=== PATIENT | female | born 1945 | race Caucasian/White ===

== ENCOUNTER 2019-06-29 09:56 | Outpatient (RCR) | payer MEDICARE, OTHER, SELFPAY | END 2019-07-20 00:01 | LOC: GILAB 09:56 | PROVIDERS: Family Provider Internal Medicine; Visit Provider Internal Medicine | DX: Z20.3 Contact with and (suspected) exposure to rabies (principal) | CPT/HCPCS: 90675 ×2; 96372 ×2; G0463 ×2 ==

== ENCOUNTER 2020-04-19 20:00 | Outpatient (CLI) | payer MEDICARE, OTHER, SELFPAY | END 2020-04-19 20:01 | disposition home or self-care (01) | LOC: SLEEP 04-20 09:24 | PROVIDERS: Family Provider Internal Medicine; Visit Provider Internal Medicine | DX: G47.33 Obstructive sleep apnea (adult) (pediatric) (principal); R41.89 Other symptoms and signs involving cognitive functions and awareness | CPT/HCPCS: 95811 ==

== ENCOUNTER 2020-05-29 08:51 | Outpatient (CLI) | payer MEDICARE, OTHER, SELFPAY ==
--- NOTE | 2020-05-29 08:59 | MM_ITS ---
WS: [id number] Bilateral screening digital mammogram, 05/29/2020 Clinical Data: SCREENING Comparison: 07/24/2018, 12/04/2016, 10/30/2015, 12/14/2013, 08/22/2011. Findings: The breast parenchymal pattern shows fibroglandular tissue No spiculated masses or clustered calcific ations are seen. There are no secondary signs of carcinoma. MM/[place] [id number] Impression: 1. Negative bilateral mammogram unchanged. 2. Recommend annual screening mammograms. BIRADS: 1-Negative FOLLOW UP: 1 Year Follow-up The CAD dry cleaning checker was used.
== END 2020-05-29 08:52 | disposition home or self-care (01) ==
LOC: RADSHAW 08:55
PROVIDERS: PCP Internal Medicine; Visit Provider Internal Medicine
DX: Z12.31 Encounter for screening mammogram for malignant neoplasm of breast (principal)
CPT/HCPCS: 77067

== ENCOUNTER 2020-12-19 10:45 | Outpatient (CLI) | payer MEDICARE, OTHER, SELFPAY ==
--- NOTE | 2020-12-19 10:53 | MR_ITS ---
WS: [id number] MRI HEAD WITH CONTRAST TECHNIQUE: Sagittal T1, T2 axial, T2 axial FLAIR, axial susceptibility weighted imaging, axial diffus ion weighted images, and coronal T2 images were obtained. Pre and post-T1 axial and post T1 coronal i mages. ADC and FSPGR images. CLINICAL INFORMATION: WEAKNESS RIGHT ARM;COGNITIVE CHANGES COMPARISON: MRI/MRA April 2018 FINDINGS: No evidence of restricted diffusion to suggest acute ischemia. Ventricular system and basal cisterns are patent. Mild small vessel changes. Moderate parenchymal volume loss. Small vessel changes in the nafisa. Normal posterior fossa. Normal vascular flow voids at the skull base. No extra axial fluid javi ections. No evidence of mass or mass effect. No hemosiderin on susceptibly weighted images. Normal optic chiasm and pituitary infundibulum. Mild s ymmetric atrophy temporal lobes and hippocampal formations. No abnormal intracranial enhancing lesion s. Normal dural venous sinuses. MR/MR head wo/w con [id number] IMPRESSION: 1. No evidence of restricted diffusion to suggest acute ischemia. 2. Mild small vessel changes with moderate parenchymal volume loss. 3. Small vessel changes in the nafisa. 4. No abnormal intracranial enhancement. 5. Mild symmetric atrophy temporal lobes and hippocampal formations. 6. No other significant findings.
[2020-12-19] MEDS: gadobenate dimeglumine 20 mL vial IV (11:34)
== END 2020-12-19 10:46 | disposition home or self-care (01) ==
LOC: RADSHAW 10:49
PROVIDERS: PCP Internal Medicine; Visit Provider Internal Medicine
DX: R53.1 Weakness (principal); R41.89 Other symptoms and signs involving cognitive functions and awareness; G31.9 Degenerative disease of nervous system, unspecified
CPT/HCPCS: 70553; A9577

== ENCOUNTER 2021-10-16 14:52 | Outpatient (CLI) | payer MEDICARE, OTHER, SELFPAY ==
--- NOTE | 2021-10-16 14:56 | MM_ITS ---
WS: [id number] VIEWS: MLO and CC views both breasts. 3D digital tomosynthesis is also included in this exam. Comparison made with prior exam of 07/29/2019. Findings: There was no sign of mass, architectural distortion or suspicious calcification in either breast. Sc attered fibroglandular densities MM/[place] [id number] Impression: BI-RADS: 2-Benign FOLLOW-UP: 1 Year Follow-up This mammogram was also analyzed by the Computer Aided Detection System R2 Imag e Medical Superintendent.
== END 2021-10-16 14:53 | disposition home or self-care (01) ==
LOC: RADSHAW 14:53
PROVIDERS: PCP Internal Medicine; Visit Provider Internal Medicine
DX: Z12.31 Encounter for screening mammogram for malignant neoplasm of breast (principal)
CPT/HCPCS: 77063; 77067

== ENCOUNTER → 2022-06-03 12:51 | Outpatient (BNVA) | payer MEDICARE, OTHER, SELFPAY | PROVIDERS: PCP Internal Medicine; Visit Provider Podiatrist Foot & Ankle Surgery | DX: M19.071 Primary osteoarthritis, right ankle and foot (principal) | CPT/HCPCS: 73600; 73630; 99204 ==

== ENCOUNTER → 2022-07-17 10:25 | Outpatient (BNVA) | payer MEDICARE, OTHER, SELFPAY | PROVIDERS: PCP Internal Medicine; Visit Provider Podiatrist Foot & Ankle Surgery | DX: M19.072 Primary osteoarthritis, left ankle and foot (principal); M19.071 Primary osteoarthritis, right ankle and foot | CPT/HCPCS: 99213 ==

== ENCOUNTER → 2022-08-30 08:00 | Outpatient (BNVA) | payer MEDICARE, SELFPAY | PROVIDERS: PCP Internal Medicine; Visit Provider Podiatrist Foot & Ankle Surgery | DX: M19.071 Primary osteoarthritis, right ankle and foot (principal) | CPT/HCPCS: 20605 ==

== ENCOUNTER 2022-11-12 16:15 | Outpatient (CLI) | payer MEDICARE, SELFPAY ==
--- NOTE | 2022-11-12 | XRR_ITS ---
PROCEDURE INFORMATION: Exam: XR Chest Exam date and time: 11/12/2022 4:55 PM Age: 77 years old Clinical indication: Cough TECHNIQUE: Imaging protocol: Radiologic exam of the chest. Views: 2 views. COMPARISON: CT chest w con* [id number] 05/03/2019 11:34 AM FINDINGS: Lungs: Unremarkable. No consolidation. Pleural spaces: Unremarkable. No pleural effusion. No pneumothorax. Heart/Mediastinum: Unremarkable. No cardiomegaly. Bones/joints: Unremarkable. XR/XR chest 2V* [id number] IMPRESSION: No acute findings.
== END 2022-11-12 16:16 | disposition home or self-care (01) ==
PROVIDERS: PCP Internal Medicine; Visit Provider Internal Medicine
DX: R05.9 Cough, unspecified (principal)
CPT/HCPCS: 71046

== ENCOUNTER 2022-12-04 14:06 | Emergency (ER) | payer MEDICARE, SELFPAY ==
[2022-12-04 14:25] VITALS: BP 154/85; PULSE 87; RESP 16; TEMP 36.6; O2SAT 97; BMI 32.1
[2022-12-04 15:30] LABS: Basophils % 0.4 %; Eosinophils # 0.1 10^3/uL (0.0-0.8); Eosinophils % 1.1 %; Hematocrit 43.9 % (37.0-47.0); Hemoglobin 14.2 g/dL (11.5-15.3); Lymphocytes # 1.8 10^3/uL (0.8-4.8); Lymphocytes % 34.5 %; Mean Corpuscular HGB Conc 32.3 g/dL (30.0-36.0); Mean Corpuscular Hemoglobin 29.8 pg (28.0-34.0); Mean Corpuscular Volume 92.2 fl (81-99); Mean Platelet Volume 9.8 fL (7.4-10.4); Monocytes # 0.6 10^3/uL (0.2-0.9); Monocytes % 11.6 %; Neutrophils # 2.75 10^3/uL (1.8-7.7); Neutrophils % 52.2 %; Nucleated Red Blood Cells % 0 %; Platelet Count 257 10^3/cmm (130-400); Red Blood Count 4.76 10^6/uL (4.1-5.3); Red Cell Distribution Width 13.6 % (12.1-15.1); White Blood Count 5.3 10^3/uL (4.0-10.0)
[2022-12-04 15:53] LABS: Alanine Aminotransferase 25 U/L (0-33); Albumin Level 3.9 g/dL (3.5-5.2); Alkaline Phosphatase 61 U/L (35-105); Anion Gap 15.1 (5-19); Aspartate Amino Transferase 33 U/L (0-32); Blood Urea Nitrogen 23 mg/dL (8-23); Calcium 8.7 mg/dL (8.5-10.5); Carbon Dioxide 23 mmol/L (22-29); Chloride 107 mmol/L (98-107); Globulin 3.4 g/dL (1.3-4.6); Glucose 97 mg/dL (65-115); Lipase 32 U/L (13-60); Magnesium 2.2 mg/dL (1.7-2.3); Osmolality Calculated 296 mOsm/kg (285-295); Potassium 4.1 mmol/L (3.5-5.1); Sodium 141 mmol/L (136-145); Total Bilirubin 0.3 mg/dL (0.15-1.2); Total Protein 7.3 g/dL (6.6-8.7)
--- NOTE | 2022-12-04 15:55 | ED_ITS ---
HPI - General Adult General: Chief complaint: General Medical Stated complaint: Sanket sent for abn labs/fluids Time Seen by Provider: 12/04/22 15:48 History of Present Illness: Patient is a 77-year-old female who comes to the ED with diarrhea. Patient reports that about 3 days ago on Friday she started feeling unwell and describes having body aches and chills. Then starting 2 days ago on Friday she developed bad diarrhea. She was having episodes of diarrhea multiple times every hour and was having accidents in her underwear. Describes the stool as a yellow liquidy type stool. Denies any abdominal pain, abdominal cramping. She endorsed not eating or drinking much during that time but denies any episodes of emesis. She does endorse feeling nausea over the past couple days. Patient was sent here by her PCP to get labs and to check for dehydration. Associated symptoms: Reports nausea; Deny chest pain, dyspnea, headache(s), rash, palpitations or vomiting Review of Systems Const: Reports: chills, body aches and fatigue; Denies: fever(s) Eyes: Denies: change in vision or eye discomfort ENMT: Denies: throat pain, odynophagia, nasal discharge or nasal congestion Card: Denies: chest pain, palpitations, edema, swelling of feet/ankles, dyspnea on exertion or orthopnea Resp: Denies: dyspnea, productive cough or non-productive cough GI: Reports: nausea and diarrhea; Denies: abdominal pain, vomiting, constipation or hematochezia : Denies: flank pain, dysuria or hematuria Musc: Denies: neck pain, back pain or extremity swelling Skin/Breast: Denies: rash or new lesions Neuro: Denies: headache(s), numbness in extremities or weakness in extremities PFS ED PFSH: Family History Brother Hypertension Stroke Sister Hypertension Mother Hypertension Stroke Father Hypertension Social History Smoking and tobacco status: former smoker Second hand smoke exposure: No Physical Exam Const: COMMON NORMALS: patient oriented x3 HENMT: COMMON NORMALS: normocephalic HEAD & SCALP: normocephalic MOUTH: Normal oral and palatal mucosa present THROAT: posterior oropharynx normal and uvula midline Neck/C-Spine: COMMON NORMALS: supple GENERAL: Yes normal visual inspection Resp: COMMON NORMALS: normal respiratory effort, No retractions, No use of accessory muscles and clear to auscultation bilaterally AUSCULTATION: clear to auscultation bilaterally Cardio: COMMON NORMALS: regular rate, regular rhythm, S1 normal heart sound present, S2 normal heart sound present, No gallops present (Cardio), No clicks present (Cardio), No murmurs present (Cardio) and Peripheral pulses 2+ throughout RATE: regular rate RHYTHM: regular rhythm HEART SOUNDS: S1 normal heart sound present and S2 normal heart sound present PERIPHERAL PULSES: Peripheral pulses 2+ throughout GI: COMMON NORMALS: Normal to inspection, nondistended, normoactive bowel sounds present, Soft to palpation, non-tender and no masses PALPATION: Yes Soft to palpation : COMMON NORMALS: Yes no CVA tenderness BLADDER/KIDNEY EXAM: Yes no CVA tenderness Back/Pelvis: COMMON NORMALS: no CVA tenderness Extremity: COMMON NORMALS: normal to inspection Neuro: COMMON NORMALS: patient oriented x3 GAIT: Yes Normal gait present Skin: GENERAL SKIN EXAM: dry skin Course Vital Signs: Vital signs: Vital Signs Temperature 97.9 F 12/04/22 14:25 Pulse Rate 87 12/04/22 14:25 Respiratory Rate 16 12/04/22 14:25 Blood Pressure 154/85 12/04/22 14:25 Pulse Oximetry 97 12/04/22 14:25 Oxygen Delivery Me thod Room Air 12/04/22 14:25 MDM - General Adult Medical Decision Making Patient is a 77-year-old female who comes to the ED with diarrhea. Patient reports that about 3 days ago on Friday she started feeling unwell and describes having body aches and chills. Then starting 2 days ago on Friday she developed bad diarrhea. She was having episodes of diarrhea multiple times every hour and was having accidents in her underwear. Describes the stool as a yellow liquidy type stool. Denies any abdominal pain, abdominal cramping. She endorsed not eating or drinking much during that time but denies any episodes of emesis. She does endorse feeling nausea over the past couple days. Patient was sent here by her PCP to get labs and to check for dehydration. Vitals are stable. Exam of patient is benign and she appears nontoxic and in no acute distress or pain. No abdominal tenderness to palpation. CBC, CMP were all unremarkable. Patient was given 1 L of IV fluids and nausea meds and she was able to tolerate p.o. fluids. She had no episodes of vomiting or diarrhea here in the ED. Patient's symptoms are likely due to viral gastroenteritis and she was stable for discharge home. She was sent home with a prescription for Zofran and told to follow-up with her PCP within the next week for reevaluation. Strict return ED precautions given. Patient understood and agreed with plan. Lab Data I reviewed the patient's lab results. 12/04/22 15:20 12/04/22 15:20 Laboratory Results WBC 5.3 10^3/uL (4.0-10.0) 12/04/22 15:20 RBC 4.76 10^6/uL (4.1-5.3) 12/04/22 15:20 Hgb 14.2 g/dL (11.5-15.3) 12/04/22 15:20 Hct 43.9 % (37.0-47.0) 12/04/22 15:20 MCV 92.2 fl (81-99) 12/04/22 15:20 MCH 29.8 pg (28.0-34.0) 12/04/22 15:20 MCHC 32.3 g/dL (30.0-36.0) 12/04/22 15:20 RDW 13.6 % (12.1-15.1) 12/04/22 15:20 Plt Count 257 10^3/cmm (130-400) 12/04/22 15:20 MPV 9.8 fL (7.4-10.4) 12/04/22 15:20 Neut % (Auto) 52.2 % 12/04/22 15:20 Lymph % (Auto) 34.5 % 12/04/22 15:20 Cocke % (Auto) 11.6 % 12/04/22 15:20 Eos % (Auto) 1.1 % 12/04/22 15:20 Baso % (Auto) 0.4 % 12/04/22 15:20 Neut # (Auto) 2.75 10^3/uL (1.8-7.7) 12/04/22 15:20 Lymph # (Auto) 1.8 10^3/uL (0.8-4.8) 12/04/22 15:20 Cocke # (Auto) 0.6 10^3/uL (0.2-0.9) 12/04/22 15:20 Eos # (Auto) 0.1 10^3/uL (0.0-0.8) 12/04/22 15:20 Baso # (Auto) 0.0 10^3/uL (0.0-0.1) 12/04/22 15:20 Nucleated RBC % (auto) 0 % 12/04/22 15:20 Nucleated RBCs # 0.0 /100WBC 12/04/22 15:20 Sodium 141 mmol/L (136-145) 12/04/22 15:20 Potassium 4.1 mmol/L (3.5-5.1) 12/04/22 15:20 Chloride 107 mmol/L (98-107) 12/04/22 15:20 Carbon Dioxide 23 mmol/L (22-29) 12/04/22 15:20 Anion Gap 15.1 (5-19) 12/04/22 15:20 BUN 23 mg/dL (8-23) 12/04/22 15:20 Creatinine 0.8 mg/dL (0.5-0.9) 12/04/22 15:20 GFR Calculation Not Reportable 12/04/22 15:20 Glucose 97 mg/dL (65-115) 12/04/22 15:20 Calculated Osmolality 296 mOsm/kg (285-295) H 12/04/22 15:20 Calcium 8.7 mg/dL (8.5-10.5) 12/04/22 15:20 Magnesium 2.2 mg/dL (1.7-2.3) 12/04/22 15:20 Total Bilirubin 0.3 mg/dL (0.15-1.2) 12/04/22 15:20 AST 33 U/L (0-32) H 12/04/22 15:20 ALT 25 U/L (0-33) 12/04/22 15:20 Alkaline Phosphatase 61 U/L (35-105) 12/04/22 15:20 Total Protein 7.3 g/dL (6.6-8.7) 12/04/22 15:20 Albumin 3.9 g/dL (3.5-5.2) 12/04/22 15:20 Globulin 3.4 g/dL (1.3-4.6) 12/04/22 15:20 Lipase 32 U/L (13-60) 12/04/22 15:20 Discharge Plan Discharge Patient Disposition: Home Clinical Impression: Viral gastroenteritis Condition: Stable Prescriptions: New ondansetron 4 mg tablet,disintegrating 4 mg PO Q8H PRN (Reason: nausea and vomiting) Qty: 20 0RF No Action losartan 25 mg tablet 25 mg PO DAILY gabapentin 100 mg capsule 100 mg PO Q8H PRN (Reason: nerve pain) amlodipine 5 mg tablet 5 mg PO DAILY Calcium + D 600 mg-5 mcg (200 unit) Tablet 1 tab PO DAILY meloxicam 7.5 mg tablet 7.5 mg PO BID metoprolol succinate 25 mg tablet extended release 24 hr 25 mg PO DAILY magnesium 200 mg Tablet 200 mg PO QPM duloxetine 30 mg capsule,delayed release(DR/EC) 30 mg PO BID Discharge Orders: Discharge ED (Routine); Ordered 12/04/22 Ordered By: Billy Hwang Referrals: Gillian Coles MD [Primary Care Provider] - Discharge Diet: Advance as tolerated and Clear Liquid Discharge Activity: Increase activity as tolerated Patient Instructions: Gastroenteritis (ED) Activity Restrictions/Additional Instructions: Follow-up with medical provider as directed in the next 5 to 7 days for reevaluation. Take medications as prescribed. Return to the ER or your medical provider if condition worsens. Please read and understand discharge instructions. Thank you for choosing [facility] for your healthcare needs today. Please realize this is an emergency room and that we are providing you with a medical screening exam and this may not be complete and all inclusive of all the testing and or work up that you may need to determine your ailment or severity of your illness. It is very important that you follow up as instructed or that you return to the Emergency Department should you have concerns or if your condition changes or worsens in any way. Coding Level of Care Code ED Jtac for Nena Harrington
[2022-12-04] MEDS: ondansetron 2 mg/ML SDV 2 mL 4 MG IVP (16:04)
[2022-12-04] MEDS: sodium chloride 0.9% 1,000 ML 999 ML IV (16:05)
== END 2022-12-04 17:25 | disposition home or self-care (01) ==
PROVIDERS: Emergency Medicine; Emergency Provider Physician Assistant; PCP Internal Medicine
DX: A08.4 Viral intestinal infection, unspecified (principal)
CPT/HCPCS: 36415; 80053; 83690; 83735; 85025; 96361; 96374; 99284; J2405; J7030

== ENCOUNTER 2022-12-05 13:08 | Outpatient (CLI) | payer MEDICARE, SELFPAY | END 2022-12-05 13:09 | disposition home or self-care (01) | LOC: LAB 13:13 | PROVIDERS: PCP Internal Medicine; Visit Provider Internal Medicine | DX: R19.7 Diarrhea, unspecified (principal) | CPT/HCPCS: 87493; 87506 ==

== ENCOUNTER 2023-01-10 08:30 | Outpatient (CLI) | payer MEDICARE, SELFPAY ==
--- NOTE | 2023-01-10 08:42 | MM_ITS ---
WS: [id number] SCREENING DIGITAL BREAST TOMOSYNTHESIS MAMMOGRAM WITH CAD HISTORY: SCREENING COMPARISON: 10/16/2021, 05/29/2020 and 07/24/2018 Bilateral CC and MLO with tomosynthesis and synthetic mammography submitted. Computer aided detection analyzed. Breast composition: There are scattered areas of fibroglandular density. Increasing asymmetry posteri or to the RIGHT nipple. Prominent soft tissues have progressed. Otherwise the vascular and scattered benign calcifications are stable. MM/[place] [id number] IMPRESSION: BI-RADS: 0-Incomplete: Need additional imaging evaluation FOLLOW UP: Need Additional Imaging RIGHT breast: Spot compression views (CC and MLO). True ML. Ultrasound to follo w if abnormality persists.
== END 2023-01-10 08:31 | disposition home or self-care (01) ==
PROVIDERS: PCP Internal Medicine; Visit Provider Internal Medicine
DX: Z12.31 Encounter for screening mammogram for malignant neoplasm of breast (principal); N64.89 Other specified disorders of breast
CPT/HCPCS: 77063; 77067

== ENCOUNTER 2023-02-10 10:03 | Outpatient (CLI) | payer MEDICARE, SELFPAY ==
--- NOTE | 2023-02-10 10:20 | MM_ITS ---
WS: [id number] ADDITIONAL VIEWS RIGHT MAMMOGRAM WITH DIGITAL BREAST TOMOSYNTHESIS. RIGHT BREAST ULTRASOUND HISTORY: RT ABNORMAL MAMMOGRAM COMPARISON: 01/10/2023, 10/16/2021 and 05/29/2020 RIGHT MAMMOGRAM: Spot compression views and true ML with digital breast tomosynthesis and SM. Asymmetry persists but appears significantly improved posterior to the RIGHT nipple. There are additi onal vascular and scattered punctate calcifications. RIGHT BREAST ULTRASOUND 2-D and color Doppler imaging submitted. No soft tissue mass posterior to the nipple or in the subareolar region. MM/[place] [id number] IMPRESSION: BI-RADS: 2-Benign FOLLOW UP: 1 Year Follow-up
== END 2023-02-10 10:04 | disposition home or self-care (01) ==
PROVIDERS: PCP Internal Medicine; Visit Provider Internal Medicine
DX: R92.8 Other abnormal and inconclusive findings on diagnostic imaging of breast (principal)
CPT/HCPCS: 76642; 77061; G0279

== ENCOUNTER 2023-05-22 07:56 | Outpatient (CLI) | payer MEDICARE, SELFPAY ==
--- NOTE | 2023-05-22 | ECG_ITS ---
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 Interpretive Statements NAME OF STUDY: LEXISCAN SESTAMIBI STRESS TEST INDICATION: [ABNORMAL EKG, ] Procedure: At the baseline, the blood pressure was 186/90 mmHg with a heart rate of 70 bpm. The electrocardiogram showed normal sinus rhythm, normal axis with normal ST and T's. The Lexiscan was infused over a period of 20 seconds. A total of 0.4 mg of Lexiscan was infused. The stress phase was continued for a total of 5 minutes. Heart rate was at the end of stress phase was 92 bpm and a blood pressure of 172/81 mmHg. The EKG at the peak infusion revealed normal sinus rhythm with no significant ST-T wave changes. Occasional PVCs were seen. Sestamibi was injected 20 seconds after the Lexiscan infusion. Blood pressure at the end of recovery phase was 159/81 mmHg with a heart rate of 86 bpm. Conclusion: 1. Normal EKG response to Lexiscan infusion 2. No Lexiscan induced chest pain or cardiac arrhythmia. 3. Normal blood pressure and heart rate response. 4. Sestamibi/sestamibi perfusion scan pending; see separate report. Electronically Signed On 05-24-2023 20:47:08 CDT by Braden Rios M.D. [id number]
--- NOTE | 2023-05-22 08:19 | NMCV_ITS ---
NM srinivasa perf SPECT r/s* [id number] Billie Sanchez Age: 77 Gender: F : 1945 Exam Date: 05/22/2023 08:19 Ordering Phys: Gillian Coles MD Technologist: MIKHAIL Hartman Exam Location: [facility] Indications: ABNORMAL EKG STRESS TEST Please [facility] IMAGE PROTOCOL Rest/Stress 1 Lexiscan Day Radiopharmaceutical Dose (mCi) Administration Site Administered by Rest: Tc-99m 10.7 IV Stepahnie Barney, [employer] Sestamibi Stress:Tc-99m 32.4 IV Stephanie Barney, [employer] Sestamibi Rest: 22-May-2023 60 Discovery 630 Stress: 22-May-2023 30 Discovery 630 0.4mg Lexiscan. Images obtained in supine and prone position. SPECT RESULTS Technical Quality: Excellent Raw Data Analysis: Normal Image Corrections: No attenuation or motion correction applied Summed Stress Score: 3 Summed Rest Score: 0 Summed Difference Score: 3 PERFUSION FINDINGS There is a small sized area of equivocal reversible perfusion defect noted in the inferolateral wall. This is consistent with small sized area of ischemia vs attneuation artifact. Clinical correlation is required. FUNCTIONAL RESULTS (calculated via Gated SPECT) Stress Image LV EF (%): 82 Stress EDV (mL):60 TID: 0.9 Stress ESV (mL):11 FUNCTIONAL FINDINGS: There is normal left ventricular systolic function. IMPRESSIONS 1. Small sized area of possible ischemia in left circumflex artery territory versus attenuation artifact. Clinical correlation is required. 2. LV systolic function is normal Braden Rios MD (Electronically Signed) Final Date: 22 May 2023 12:07 S
[2023-05-22 08:20] VITALS: BMI 33.6
[2023-05-22] MEDS: regadenoson 0.4 Mg/5 ml Syringe IVP (10:07)
[2023-05-22 10:26] VITALS: BP 159/51; PULSE 91
== END 2023-05-22 07:57 | disposition home or self-care (01) ==
LOC: CDL 07:57
PROVIDERS: PCP Internal Medicine; Visit Provider Internal Medicine
DX: R94.31 Abnormal electrocardiogram [ECG] [EKG] (principal)
CPT/HCPCS: 36415; 78452; 93017; 96374; A9500; J2785

== ENCOUNTER → 2023-06-06 10:47 | Outpatient (BNVA) | payer MEDICARE, SELFPAY | PROVIDERS: PCP Internal Medicine; Visit Provider Internal Medicine Cardiovascular Disease | DX: G47.30 Sleep apnea, unspecified (principal); I10 Essential (primary) hypertension; Z87.891 Personal history of nicotine dependence | CPT/HCPCS: 99203 ==

== ENCOUNTER → 2024-03-18 11:03 | Outpatient (BNVA) | payer MEDICARE, SELFPAY | PROVIDERS: PCP Internal Medicine; Visit Provider Podiatrist Foot & Ankle Surgery | DX: M19.071 Primary osteoarthritis, right ankle and foot; M19.072 Primary osteoarthritis, left ankle and foot | CPT/HCPCS: 20600; J1100; J3301 ==

== ENCOUNTER 2024-06-04 07:39 | Outpatient (CLI) | payer MEDICARE, SELFPAY ==
--- NOTE | 2024-06-04 07:41 | MM_ITS ---
WS: [id number] BILATERAL SCREENING DIGITAL TOMOSYNTHESIS MAMMOGRAM WITH CAD HISTORY: SCREENING COMPARISON: 02/10/2023, 01/10/2023, 10/16/2021 Bilateral CC and MLO views with tomosynthesis and synthetic mammography submitted. Computer aided det ection analyzed. Breast composition: There are scattered areas of fibroglandular density. No suspicious masses, microc alcifications or architectural distortion. Scattered calcifications and arterial calcifications. No n ew mass or distortion. MM/MM scr BI tomosynthesis [id number] IMPRESSION: BI-RADS: 2 - Benign. FOLLOW UP: 1 Year Follow-up
== END 2024-06-04 07:40 | disposition home or self-care (01) ==
LOC: RAD 07:40
PROVIDERS: PCP Internal Medicine; Visit Provider Internal Medicine
DX: Z12.31 Encounter for screening mammogram for malignant neoplasm of breast (principal); R92.323 Mammographic fibroglandular density, bilateral breasts; R92.1 Mammographic calcification found on diagnostic imaging of breast
CPT/HCPCS: 77063; 77067

== ENCOUNTER 2024-10-24 13:39 | Inpatient (IN) | payer MEDICARE, SELFPAY ==
--- NOTE | 2024-10-24 13:45 | CTR_ITS ---
PROCEDURE INFORMATION: Exam: CT Abdomen And Pelvis With Contrast Exam date and time: 10/24/2024 3:20 PM Age: 79 years old Clinical indication: Abdominal pain; Generalized; Additional info: Abd pain TECHNIQUE: Imaging protocol: Computed tomography of the abdomen and pelvis with contrast. Radiation optimization: All CT scans at this facility use at least one of these dose optimization techniques: automated exposure control; mA and/or kV adjustment per patient size (includes targeted exams where dose is matched to clinical indication); or iterative reconstruction. Contrast material: OMNIPAQUE 350; Contrast volume: 100 ml; Contrast route: INTRAVENOUS (IV); COMPARISON: US gall bladder [id number] 10/24/2024 2:43 PM RADIATION DOSE METRICS: Total DLP (mGy-cm): 655.9 FINDINGS: Liver: Normal. No mass. Gallbladder and biliary ducts: Distended gallbladder with pericholecystic stranding and gallbladder wall thickening. Acute cholecystitis is present. Pancreas: Normal. No ductal dilation. Spleen: Normal. No splenomegaly. Adrenal glands: Normal. No mass. Kidneys and ureters: Normal. No hydronephrosis. Stomach and bowel: Unremarkable. No obstruction. No mucosal thickening. Appendix: No evidence of appendicitis. Intraperitoneal space: Unremarkable. No free air. No significant fluid collection. Vasculature: Unremarkable. No abdominal aortic aneurysm. Lymph nodes: Unremarkable. No enlarged lymph nodes. Urinary bladder: Unremarkable as visualized. Reproductive: Unremarkable as visualized. Bones/joints: Bilateral hip replacement. Soft tissues: Unremarkable. CT/CT abdomen pelvis w con* [id number] IMPRESSION: Likely acute cholecystitis with a thickened gallbladder wall and mild pericholecystic stranding and trace fluid. The gallstones visible on ultrasound are not seen on this study.
[2024-10-24 13:46] VITALS: BP 116/67; PULSE 123; RESP 16; TEMP 36.7; O2SAT 94; BMI 32.9
--- NOTE | 2024-10-24 13:48 | W.ED.ABDPA2 ---
HPI - Abdominal Pain General: Chief Complaint: Abdominal Pain Stated Complaint: abd pain, n/v/f Time Seen by Provider: 10/24/24 13:43 Source: patient Mode of arrival: ambulatory Limitations: no limitations History of Present Illness: 79-year-old female states she has been having abdominal pain over the last 3 days. States she been having a sharp pain in her right upper quadrant that she rates an 8 out of 10. States pain is worsened with movement and palpation she is also had nausea and vomiting. She has had subjective fevers at home. Only abdominal surgery she has had in the past is a hysterectomy. Associated Symptoms: Reports nausea and vomiting; Denies chills, diarrhea, dysuria and fever(s) Related Data Home Medications ?Medication ?Instructions ?Recorded ?Confirmed gabapentin 100 mg capsule 100 mg PO Q8H PRN nerve pain 06/03/22 10/24/24 losartan 25 mg tablet 25 mg PO DAILY 06/03/22 10/24/24 magnesium 200 mg tablet 200 mg PO QPM 12/04/22 10/24/24 carvedilol 6.25 mg tablet (Coreg) 6.25 mg PO BID 06/06/23 10/24/24 duloxetine 30 mg capsule,delayed 60 mg PO DAILY 06/06/23 10/24/24 release multivit-iron 18 mg-folic acid 400 1 tab PO DAILY 10/24/24 10/24/24 mcg-calcium 500 mg-minerals tablet (Daily Multiple For Women) spironolactone 25 mg tablet 25 mg PO DAILY 10/24/24 10/24/24 Allergies Allergy/AdvReac Type Severity Reaction Status Date / Time No Known Allergies Allergy Verified 03/18/24 11:13 Review of Systems Const: Denies: fever(s), chills, body aches or change in appetite ENMT: Denies: throat pain or dental pain Card: Denies: chest pain Resp: Denies: dyspnea GI: Reports: abdominal pain, nausea and vomiting; Denies: diarrhea : Denies: dysuria Musc: Denies: neck pain or back pain Skin/Breast: Denies: rash Neuro: Denies: headache(s) PFSH ED PFSH: Medical History Sleep apnea Hypertension Family History Brother Hypertension Stroke Sister Hypertension Mother Hypertension Stroke Father Hypertension Social History Smoking and tobacco/nicotine status: never used tobacco/nicotine Second hand smoke exposure: No Alcohol intake: current Alcohol intake frequency: holidays/special occasions only Alcohol type: wine Substance/Drug Use: never Physical Exam Const: COMMON NORMALS: no acute distress, patient oriented x3 and healthy appearing HENMT: COMMON NORMALS: normocephalic and atraumatic HEAD & SCALP: normocephalic and atraumatic Eye: COMMON NORMALS: conjunctivae normal CONJUNCTIVA: Yes conjunctivae normal Neck/C-Spine: COMMON NORMALS: full ROM and supple Chest: COMMONS NORMALS: normal inspection of the chest Resp: COMMON NORMALS: normal respiratory effort, No retractions, No use of accessory muscles and clear to auscultation bilaterally AUSCULTATION: clear to auscultation bilaterally Cardio: COMMON NORMALS: regular rate, regular rhythm and No murmurs present (Cardio) RATE: regular rate RHYTHM: regular rhythm GI: COMMON NORMALS: Normal to inspection, nondistended, normoactive bowel sounds present, Soft to palpation and no masses PALPATION: Yes Soft to palpation and Yes Tenderness to palpation present (GI) Details: RUQ Extremity: COMMON NORMALS: normal to inspection and full ROM Neuro: COMMON NORMALS: patient oriented x3, moves all extremities and no focal motor deficits Psych: COMMON NORMALS: mental status grossly normal, Normal thought process present and cooperative THOUGHT PROCESS: Normal thought process present Skin: COMMON NORMALS: no rashes or lesions noted and no wounds GENERAL SKIN EXAM: no rashes or lesions noted Course Vital Signs: Vital signs: Vital Signs Temperature 98.0 F 10/24/24 13:46 Pulse Rate 123 H 10/24/24 13:46 Respiratory Rate 16 10/24/24 14:06 Blood Pressure 116/67 10/24/24 13:46 Pulse Oximetry 94 10/24/24 13:46 Oxygen Delivery Me thod Room Air 10/24/24 13:46 MDM - Abdominal Pain Medical Decision Making Patient presents with abdominal pain she was found to have cholecystitis spoke to surgeon Long hospitalist will admit at this time. Medical Records I reviewed the patient's medical records. Lab Data I reviewed the patient's lab results. 10/24/24 13:52 10/24/24 13:52 Labs/Radiology: Radiology Impressions Abdomen/Pelvis CT 10/24/24 13:45 IMPRESSION: Likely acute cholecystitis with a thickened gallbladder wall and mild pericholecystic stranding and trace fluid. The gallstones visible on ultrasound are not seen on this study. Gallbladder Ultrasound 10/24/24 14:03 IMPRESSION: 1. No acute findings. 2. Cholelithiasis with a thickened gallbladder wall and a distended appearing gallbladder. Laboratory Results WBC 27.97 10^3/uL (3.29-11.43) H 10/24/24 13:52 RBC 4.80 10^6/uL (3.85-5.65) 10/24/24 13:52 Hgb 15.00 g/dL (11.27-16.99) 10/24/24 13:52 Hct 44.9 % (36-47) 10/24/24 13:52 MCV 93.5 fl (85-98) 10/24/24 13:52 MCH 31.3 pg (27-33) 10/24/24 13:52 MCHC 33.4 g/dL (30-55) 10/24/24 13:52 RDW 13.4 % (12.1-15.1) 10/24/24 13:52 Plt Count 299 10^3/cmm (157-399) 10/24/24 13:52 MPV 9.8 fL (7.4-10.4) 10/24/24 13:52 Neut % (Auto) 53.2 % 10/24/24 13:52 Lymph % (Auto) 10.4 % 10/24/24 13:52 Gregg % (Auto) 6.8 % 10/24/24 13:52 Eos % (Auto) 28.7 % 10/24/24 13:52 Baso % (Auto) 0.3 % 10/24/24 13:52 Neut # (Auto) 14.88 10^3/uL (1.8-7.7) H 10/24/24 13:52 Lymph # (Auto) 2.9 10^3/uL (0.8-4.8) 10/24/24 13:52 Gregg # (Auto) 1.9 10^3/uL (0.2-0.9) H 10/24/24 13:52 Eos # (Auto) 8.0 10^3/uL (0.0-0.8) H 10/24/24 13:52 Baso # (Auto) 0.1 10^3/uL (0.0-0.1) 10/24/24 13:52 Nucleated RBC % (auto) 0 % 10/24/24 13:52 Nucleated RBCs # 0.0 /100WBC 10/24/24 13:52 Sodium 134 mmol/L (136-145) L 10/24/24 13:52 Potassium 3.9 mmol/L (3.5-5.1) 10/24/24 13:52 Chloride 98 mmol/L (98-107) 10/24/24 13:52 Carbon Dioxide 20 mmol/L (22-29) L 10/24/24 13:52 Anion Gap 19.9 (5-19) H 10/24/24 13:52 BUN 36 mg/dL (8-23) H 10/24/24 13:52 Creatinine 1.2 mg/dL (0.5-0.9) H 10/24/24 13:52 GFR Calculation Not Reportable 10/24/24 13:52 Glucose 148 mg/dL (65-115) H 10/24/24 13:52 Calculated Osmolality 289 mOsm/kg (285-295) 10/24/24 13:52 Lactic Acid 2.8 mmol/L (0.5-2.2) H 10/24/24 13:52 Calcium 9.2 mg/dL (8.5-10.5) 10/24/24 13:52 Total Bilirubin 0.9 mg/dL (0.15-1.2) 10/24/24 13:52 AST 24 U/L (0-32) 10/24/24 13:52 ALT 21 U/L (0-33) 10/24/24 13:52 Alkaline Phosphatase 64 U/L (35-105) 10/24/24 13:52 Total Protein 8.2 g/dL (6.6-8.7) 10/24/24 13:52 Albumin 3.9 g/dL (3.5-5.2) 10/24/24 13:52 Globulin 4.3 g/dL (1.3-4.6) 10/24/24 13:52 Lipase 22 U/L (13-60) 10/24/24 13:52 Urine Color [place] (Yellow) A 10/24/24 15:12 Urine Appearance Cloudy (CLEAR) A 10/24/24 15:12 Urine pH 5 (5-7) 10/24/24 15:12 Ur Specific [place] 1.025 (1.005-1.030) 10/24/24 15:12 Urine Protein 3+ (Negative) A 10/24/24 15:12 Urine Glucose (UA) Norm (Normal) 10/24/24 15:12 Urine Ketones Negative (Negative) 10/24/24 15:12 Urine Blood 3+ (Negative) A 10/24/24 15:12 Urine Nitrate Negative (Negative) 10/24/24 15:12 Urine Bilirubin 1+ (Negative) H 10/24/24 15:12 Urine Urobilinogen Neg mg/dL (Negative) 10/24/24 15:12 Ur Leukocyte Esterase Trace (Negative) A 10/24/24 15:12 Urine RBC >100 /hpf (0-2) H 10/24/24 15:12 Urine WBC 11-20 /hpf (0-5) H 10/24/24 15:12 Ur Squamous Epith Cells 6-10 /hpf (0-5) 10/24/24 15:12 Amorphous Sediment Not Reportable 10/24/24 15:12 Urine Bacteria 1+ /hpf (NONE) H 10/24/24 15:12 Hyaline Casts 26.04 /lpf 10/24/24 15:12 Urine Mucus 1+ /hpf 10/24/24 15:12 Urine Yeast 2+ /hpf H 10/24/24 15:12 All radiology interpretation(s) finalized by discharge EKG Data EKG 1: I personally reviewed and interpreted this EKG as follows: EKG interpretation date: 10/24/24 EKG interpretation time: 16:05 Interpretation: nsr hr [address] elevation qrs 80 qtc 415 Discharge Plan Discharge Patient Disposition: Admitted As Inpatient Clinical Impression: Cholecystitis Condition: Stable Prescriptions: No Action carvedilol [Coreg] 6.25 mg tablet 6.25 mg PO BID Rx Instructions: must administer with a meal/food losartan 25 mg tablet 25 mg PO DAILY gabapentin 100 mg capsule 100 mg PO Q8H PRN (Reason: nerve pain) magnesium 200 mg Tablet 200 mg PO QPM duloxetine 30 mg capsule,delayed release(DR/EC) 60 mg PO DAILY spironolactone 25 mg tablet 25 mg PO DAILY Daily Multiple For Women 18 mg iron-400 mcg-500 mg Ca Tablet 1 tab PO DAILY Referrals: Gillian Coles MD [Primary Care Provider] - Print Language: Welsh Coding Level of Care Code ED Home 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
[2024-10-24 14:01] LABS: Basophils # 0.1 10^3/uL (0.0-0.1); Basophils % 0.3 %; Eosinophils % 28.7 %; Hematocrit 44.9 % (36-47); Lymphocytes # 2.9 10^3/uL (0.8-4.8); Lymphocytes % 10.4 %; Mean Corpuscular HGB Conc 33.4 g/dL (30-55); Mean Corpuscular Hemoglobin 31.3 pg (27-33); Mean Corpuscular Volume 93.5 fl (85-98); Mean Platelet Volume 9.8 fL (7.4-10.4); Monocytes # 1.9 10^3/uL (0.2-0.9); Monocytes % 6.8 %; Neutrophils # 14.88 10^3/uL (1.8-7.7); Neutrophils % 53.2 %; Nucleated Red Blood Cells % 0 %; Platelet Count 299 10^3/cmm (157-399); Red Cell Distribution Width 13.4 % (12.1-15.1); White Blood Count 27.97 10^3/uL (3.29-11.43)
--- NOTE | 2024-10-24 14:03 | USR_ITS ---
PROCEDURE INFORMATION: Exam: US Abdomen, Limited; Right Upper Quadrant Exam date and time: 10/24/2024 2:43 PM Age: 79 years old Clinical indication: Abdominal pain; Additional info: Ruq pain TECHNIQUE: Imaging protocol: Real time ultrasound of the abdomen with image documentation. Limited exam focused on the right upper quadrant. COMPARISON: CT chest w con* [id number] 05/03/2019 11:34 AM FINDINGS: Liver: Increased echogenicity suggesting steatosis. No masses. Gallbladder: Cholelithiasis. Gallbladder wall is thickened at 6 mm. The gallbladder is dilated. Biliary ducts: Normal. No stones. No dilation. Pancreas: Predominantly obscured. Right kidney: Normal. No mass. No hydronephrosis. US/US gall bladder [id number] IMPRESSION: 1. No acute findings. 2. Cholelithiasis with a thickened gallbladder wall and a distended appearing gallbladder.
[2024-10-24 14:06] VITALS: RESP 16
[2024-10-24] MEDS: morphine 4 mg/mL SDV 1 mL IVP ×2 (14:06→17:05)
[2024-10-24] MEDS: sodium chloride 0.9% 1,000 ML 999 ML IV ×2 (14:07→14:44)
[2024-10-24] MEDS: ondansetron 2 mg/ML SDV 2 mL 4 MG IVP (14:07)
[2024-10-24 14:20] LABS: Alanine Aminotransferase 21 U/L (0-33); Albumin Level 3.9 g/dL (3.5-5.2); Alkaline Phosphatase 64 U/L (35-105); Anion Gap 19.9 (5-19); Aspartate Amino Transferase 24 U/L (0-32); Blood Urea Nitrogen 36 mg/dL (8-23); Calcium 9.2 mg/dL (8.5-10.5); Carbon Dioxide 20 mmol/L (22-29); Chloride 98 mmol/L (98-107); Creatinine Clr Calc Pharmacy 36.4045; Globulin 4.3 g/dL (1.3-4.6); Glucose 148 mg/dL (65-115); Lipase 22 U/L (13-60); Osmolality Calculated 289 mOsm/kg (285-295); Potassium 3.9 mmol/L (3.5-5.1); Sodium 134 mmol/L (136-145); Total Bilirubin 0.9 mg/dL (0.15-1.2); Total Protein 8.2 g/dL (6.6-8.7)
[2024-10-24 14:23] LABS: Lactic Sepsis W/Reflex 2.8 mmol/L (0.5-2.2)
[2024-10-24 14:40] LABS: Reflex Lactate Order REFLEX LACTIC ORDERD
[2024-10-24] MEDS: sodium chloride 0.9% 500 ML 999 ML IV (14:48)
[2024-10-24 15:19] LABS: Hyaline Casts Urine 26.04 /lpf; RBC Urine >100 /hpf (0-2)
[2024-10-24] MEDS: iohexol 350 mg/mL 500 mL Btl (per mL) IV (15:21)
[2024-10-24 15:27] LABS: Add Urine Microscopic? YES; Bacteria Urine 1+ /hpf; Bilirubin Urine 1+ (Negative); Blood Urine 3+ (Negative); Glucose Urine UA Norm (Normal); Ketones Urine Negative (Negative); Leukocyte Esterase Urine Trace (Negative); Nitrate Urine Negative (Negative); Protein Urine 3+ (Negative); Specific Gravity, Urine 1.025 (1.005-1.030); UA Slide Review UA Slide Review Perf; Urine Appearance Cloudy (CLEAR); Urine Color Orange (Yellow); Urobilinogen Urine Neg (Negative); pH Urine 5 (5-7)
[2024-10-24 15:28] LABS: Add Urine Culture? Yes; Mucus Urine 1+ /hpf
[2024-10-24] MEDS: piperacillin-tazobactam 3.375 GM in sodium chloride 0.9% (plus) 50 ML IV ×2 (15:36→20:44)
--- NOTE | 2024-10-24 15:56 | PM.CONSULT ---
Providers/Reason For Consult Consulting Physician/Specialty*: General Surgery Reason for Consult*: Acute cholecystitis Primary Care Provider: Gillian Coles MD History of Present Illness History of Present Illness Billie Sanchez is a 79 year old female Who presents to the hospital with 48 hours of abdominal pain nausea and vomiting. According to the patient Friday night she started to have severe abdominal pain in the right upper quadrant followed by several episodes of nausea and vomit. She has been unable to tolerate food since then. She has surgical history remarkable for open appendectomy and hysterectomy. Workup in the ER is consistent with acute cholecystitis. Review of Systems General: Reports: 10 or more systems reviewed and unremarkable except in HPI and below Medications/Allergies Home Medications ?Medication ?Instructions ?Recorded ?Confirmed ?Last Taken ?Type gabapentin 100 mg capsule 100 mg PO Q8H PRN nerve pain 06/03/22 10/24/24 10/20/24 History losartan 25 mg tablet 25 mg PO DAILY 06/03/22 10/24/24 10/20/24 History magnesium 200 mg tablet 200 mg PO QPM 12/04/22 10/24/24 12/03/22 History carvedilol 6.25 mg tablet (Coreg) 6.25 mg PO BID 06/06/23 10/24/24 10/21/24 History duloxetine 30 mg capsule,delayed 60 mg PO DAILY 06/06/23 10/24/24 Unknown History release multivit-iron 18 mg-folic acid 400 1 tab PO DAILY 10/24/24 10/24/24 10/20/24 History mcg-calcium 500 mg-minerals tablet (Daily Multiple For Women) spironolactone 25 mg tablet 25 mg PO DAILY 10/24/24 10/24/24 10/21/24 History Allergies Allergy/AdvReac Type Severity Reaction Status Date / Time No Known Allergies Allergy Verified 03/18/24 11:13 PFSH Acute PFSH: Medical History Sleep apnea Hypertension Family History Brother Hypertension Stroke Sister Hypertension Mother Hypertension Stroke Father Hypertension Social History Smoking and tobacco/nicotine status: never used tobacco/nicotine Second hand smoke exposure: No Alcohol intake: current Alcohol intake frequency: holidays/special occasions only Alcohol type: wine Substance/Drug Use: never Vitals/I&O/Wt Last Vital Signs Temp 98.0 F 10/24/24 13:46 Pulse 123 H 10/24/24 13:46 Resp 16 10/24/24 14:06 BP 116/67 10/24/24 13:46 Pulse Ox 94 10/24/24 13:46 O2 Del Method Room Air 10/24/24 13:46 10/24/24 10/24/24 10/24/24 06:59 14:59 22:59 Intake Total 1000 / 1000 Balance 1000 / 1000 Weight last 48 hrs Weight 180 lb Physical Exam Narrative: Patient is alert and oriented, no acute distress at the moment Abdominal exam shows a distended abdomen, abdomen is soft, there is tenderness in the right upper quadrant with a positive Urias sign. Data 10/24/24 13:52 10/24/24 13:52 Micro: Microbiology 10/24/24 14:32 Blood Culture - Preliminary Blood SPECIMEN COLLECTED 10/24/24 14:30 Blood Culture - Preliminary Blood SPECIMEN COLLECTED A&P Assessment and plan (1) Acute cholecystitis due to biliary calculus: (2) Sepsis: Plan After a complete history, physical examination and review of all available clinical data The following is my assessment.This is an elderly female who presents with acute cholecystitis, onset of symptoms about 48 hours. Upon presentation she has a grade 2 acute cholecystitis with a white count of 27,000, tachycardia, increased lactate level but no hypotension. Patient will require preoperative resuscitation with IV fluids, supportive cares and antibiotics. Patient will be admitted to the hospitalist team for management and the plan is to proceed to the OR for laparoscopic cholecystectomy tomorrow. In the case of worsening clinical status over the next 24 hours, we might consider doing a cholecystostomy tube rather than a laparoscopic cholecystectomy. I have offered the patient laparoscopic cholecystectomy for Acute Cholecystitis. All the risk and benefits of the procedure were discussed with the patient including the risks of bleeding, infection, damage to surrounding structures including liver, duodenum, colon, risk of injuring bile ducts requiring extensive surgery at higher level of care facility, risk of retained stones, bile leak, billioma, need for subtotal cholecystectomy, hernia and wound related complications, need to conversion to open procedure, sepsis and . Patient shows understanding and would like to proceed. -Continue IV fluid resuscitation as Guided by medical team -Continue IV antibiotics -Morning labs including CBC, BMP and LFTs -Plan is for cholecystectomy tomorrow PDMP PDMP Reviewed: Not Reviewed Coding Level of Care Code Acute Code for Chg Fwd Diagnoses Acute cholecystitis due to biliary calculus K80.00 Sepsis A41.9
--- NOTE | 2024-10-24 16:05 | ECG_ITS ---
[email or web address] Date: 2024-10-24 Pat Name: Billie Sanchez Department: Room: Gender: Female Hospital Coder: : 1945 Requested By: Lorene Alicia Order Number: [id number] Reading MD: DEBORAH JACQUES Measurements Intervals [place] Rate: 98 P: 55 NE: 126 QRS: 3 QRSD: 80 T: 32 QT: 360 QTc: 460 Interpretive Statements SINUS RHYTHM MODERATE ST DEPRESSION [0.05+ mV ST DEPRESSION] No previous ECG available for comparison Electronically Signed On 10-24-2024 21:43:00 CDT by DEBORAH JACQUES [id number]
[2024-10-24] MEDS: VANCOMYCIN ADD-Vantage 1,000 MG in 0.9% NaCl ADD-Vantage 250 ML 250 MG IV (16:20)
--- NOTE | 2024-10-24 16:48 | PM.HP ---
Providers/Chief Complaint Primary Care Provider: Gillian Coles MD Chief Complaint: abd pain, n/v/f History of Present Illness Billie Sanchez is a 79 year old female with a past medical history of hypertension who presenting to the hospital today with chief complaints of abdominal pain located in the right upper quadrant and epigastric region along with nausea and vomiting. She has not been able to tolerate any p.o. intake. Symptoms started on Friday (today Friday), additionally she noted a low urine output and presented into the emergency room. CT of the abdomen and pelvis and ultrasound of the gallbladder showed acute cholecystitis. Patient is currently awake alert and oriented. She has significant leukocytosis at 27,000, has an VISHAL with creatinine at 1.2 and elevated lactic acid at 2.8. She denies any diarrhea. She has been passing flatus but thinks this is less than usual. Denies any fever or chills. LFTs are normal. Review of Systems General: Reports: 10 or more systems reviewed and unremarkable except in HPI and below Const: Denies: fever(s), chills or body aches Eyes: Denies: change in vision, blurry vision or photophobia ENMT: Reports: hoarseness; Denies: throat pain, enlarged tonsils, odynophagia or nasal congestion Card: Denies: chest pain, palpitations, irregular heart rhythm, edema, swelling of feet/ankles, lightheadedness, pre-syncope, dyspnea on exertion or orthopnea Resp: Denies: dyspnea, productive cough, non-productive cough, wheezing, stridor, pain on inspiration, change in phlegm color, hemoptysis or chest congestion GI: Denies: abdominal pain, nausea, vomiting, hematemesis, coffee ground emesis, dysphagia, heartburn, diarrhea, constipation, GI cramping, change in stool character, hematochezia or melena : Denies: flank pain, difficulty voiding, dysuria, urinary frequency, urinary urgency, urinary hesitancy or hematuria Musc: Denies: neck pain, back pain, extremity pain, joint swelling, joint warmth or deformity Neuro: Denies: headache(s), numbness in extremities, weakness in extremities, sensory changes, difficulty walking, frequent falls, dizziness, vertigo, behavioral changes, Slurred speech present or seizure-like activity Psych: Denies: anxiety, depression, suicidal ideation or homicidal ideation Endo: Denies: polyuria, polydipsia, tired all the time, cold intolerance or hot flashes Mario Alberto/Lymph: Denies: easy bruising or easy bleeding Medications/Allergies Home Medications ?Medication ?Instructions ?Recorded ?Confirmed ?Last Taken ?Type gabapentin 100 mg capsule 100 mg PO Q8H PRN nerve pain 06/03/22 10/24/24 10/20/24 History losartan 25 mg tablet 25 mg PO DAILY 06/03/22 10/24/24 10/20/24 History magnesium 200 mg tablet 200 mg PO QPM 12/04/22 10/24/24 12/03/22 History carvedilol 6.25 mg tablet (Coreg) 6.25 mg PO BID 06/06/23 10/24/24 10/21/24 History duloxetine 30 mg capsule,delayed 60 mg PO DAILY 06/06/23 10/24/24 Unknown History release ibuprofen 200 mg tablet (Advil) 400 mg PO Q6H PRN Pain 10/24/24 10/24/24 Unknown History multivit-iron 18 mg-folic acid 400 1 tab PO DAILY 10/24/24 10/24/24 10/20/24 History mcg-calcium 500 mg-minerals tablet (Daily Multiple For Women) spironolactone 25 mg tablet 25 mg PO DAILY 10/24/24 10/24/24 10/21/24 History Allergies Allergy/AdvReac Type Severity Reaction Status Date / Time No Known Allergies Allergy Verified 03/18/24 11:13 PFSH Acute PFSH: Medical History Sleep apnea Hypertension Family History Brother Hypertension Stroke Sister Hypertension Mother Hypertension Stroke Father Hypertension Social History Smoking and tobacco/nicotine status: never used tobacco/nicotine Second hand smoke exposure: No Alcohol intake: current Alcohol intake frequency: holidays/special occasions only Alcohol type: wine Substance/Drug Use: never Vitals/I&O/Wt Last Vital Signs Temp 98.0 F 10/24/24 13:46 Pulse 123 H 10/24/24 13:46 Resp 16 10/24/24 14:06 BP 116/67 10/24/24 13:46 Pulse Ox 94 10/24/24 13:46 O2 Del Method Room Air 10/24/24 13:46 10/24/24 10/24/24 10/24/24 06:59 14:59 22:59 Intake Total 1050 / 1050 Balance 1050 / 1050 Weight last 48 hrs Weight 81.647 kg Physical Exam Narrative: General: No acute distress, AO x3 HEENT: PERRLA, pupils bilaterally equal and reactive, pallors not present Chest: Normal vesicular breath sounds, no added sounds, equal good air entry bilaterally CVS: S1-S2 regular, no murmurs, no tachycardia, no gallops, no rubs Abdomen: TTP with rebound guarding in the RUQ region Neuro: No focal deficits, no facial deformity, AO x3, power 5/5 in all limbs Data 10/24/24 13:52 10/24/24 13:52 Micro: Microbiology 10/24/24 14:32 Blood Culture - Preliminary Blood SPECIMEN COLLECTED 10/24/24 14:30 Blood Culture - Preliminary Blood SPECIMEN COLLECTED Other data: Radiology Impressions Abdomen/Pelvis CT 10/24/24 13:45 IMPRESSION: Likely acute cholecystitis with a thickened gallbladder wall and mild pericholecystic stranding and trace fluid. The gallstones visible on ultrasound are not seen on this study. Gallbladder Ultrasound 10/24/24 14:03 IMPRESSION: 1. No acute findings. 2. Cholelithiasis with a thickened gallbladder wall and a distended appearing gallbladder. Laboratory Results WBC 27.97 10^3/uL (3.29-11.43) H 10/24/24 13:52 RBC 4.80 10^6/uL (3.85-5.65) 10/24/24 13:52 Hgb 15.00 g/dL (11.27-16.99) 10/24/24 13:52 Hct 44.9 % (36-47) 10/24/24 13:52 MCV 93.5 fl (85-98) 10/24/24 13:52 MCH 31.3 pg (27-33) 10/24/24 13:52 MCHC 33.4 g/dL (30-55) 10/24/24 13:52 RDW 13.4 % (12.1-15.1) 10/24/24 13:52 Plt Count 299 10^3/cmm (157-399) 10/24/24 13:52 MPV 9.8 fL (7.4-10.4) 10/24/24 13:52 Neut % (Auto) 53.2 % 10/24/24 13:52 Lymph % (Auto) 10.4 % 10/24/24 13:52 [place] % (Auto) 6.8 % 10/24/24 13:52 Eos % (Auto) 28.7 % 10/24/24 13:52 Baso % (Auto) 0.3 % 10/24/24 13:52 Neut # (Auto) 14.88 10^3/uL (1.8-7.7) H 10/24/24 13:52 Lymph # (Auto) 2.9 10^3/uL (0.8-4.8) 10/24/24 13:52 [place] # (Auto) 1.9 10^3/uL (0.2-0.9) H 10/24/24 13:52 Eos # (Auto) 8.0 10^3/uL (0.0-0.8) H 10/24/24 13:52 Baso # (Auto) 0.1 10^3/uL (0.0-0.1) 10/24/24 13:52 Nucleated RBC % (auto) 0 % 10/24/24 13:52 Nucleated RBCs # 0.0 /100WBC 10/24/24 13:52 Sodium 134 mmol/L (136-145) L 10/24/24 13:52 Potassium 3.9 mmol/L (3.5-5.1) 10/24/24 13:52 Chloride 98 mmol/L (98-107) 10/24/24 13:52 Carbon Dioxide 20 mmol/L (22-29) L 10/24/24 13:52 Anion Gap 19.9 (5-19) H 10/24/24 13:52 BUN 36 mg/dL (8-23) H 10/24/24 13:52 Creatinine 1.2 mg/dL (0.5-0.9) H 10/24/24 13:52 GFR Calculation Not Reportable 10/24/24 13:52 Glucose 148 mg/dL (65-115) H 10/24/24 13:52 Calculated Osmolality 289 mOsm/kg (285-295) 10/24/24 13:52 Lactic Acid 2.8 mmol/L (0.5-2.2) H 10/24/24 13:52 Calcium 9.2 mg/dL (8.5-10.5) 10/24/24 13:52 Total Bilirubin 0.9 mg/dL (0.15-1.2) 10/24/24 13:52 AST 24 U/L (0-32) 10/24/24 13:52 ALT 21 U/L (0-33) 10/24/24 13:52 Alkaline Phosphatase 64 U/L (35-105) 10/24/24 13:52 Total Protein 8.2 g/dL (6.6-8.7) 10/24/24 13:52 Albumin 3.9 g/dL (3.5-5.2) 10/24/24 13:52 Globulin 4.3 g/dL (1.3-4.6) 10/24/24 13:52 Lipase 22 U/L (13-60) 10/24/24 13:52 Urine Color [place] (Yellow) A 10/24/24 15:12 Urine Appearance Cloudy (CLEAR) A 10/24/24 15:12 Urine pH 5 (5-7) 10/24/24 15:12 Ur Specific [place] 1.025 (1.005-1.030) 10/24/24 15:12 Urine Protein 3+ (Negative) A 10/24/24 15:12 Urine Glucose (UA) Norm (Normal) 10/24/24 15:12 Urine Ketones Negative (Negative) 10/24/24 15:12 Urine Blood 3+ (Negative) A 10/24/24 15:12 Urine Nitrate Negative (Negative) 10/24/24 15:12 Urine Bilirubin 1+ (Negative) H 10/24/24 15:12 Urine Urobilinogen Neg mg/dL (Negative) 10/24/24 15:12 Ur Leukocyte Esterase Trace (Negative) A 10/24/24 15:12 Urine RBC >100 /hpf (0-2) H 10/24/24 15:12 Urine WBC 11-20 /hpf (0-5) H 10/24/24 15:12 Ur Squamous Epith Cells 6-10 /hpf (0-5) 10/24/24 15:12 Amorphous Sediment Not Reportable 10/24/24 15:12 Urine Bacteria 1+ /hpf (NONE) H 10/24/24 15:12 Hyaline Casts 26.04 /lpf 10/24/24 15:12 Urine Mucus 1+ /hpf 10/24/24 15:12 Urine Yeast 2+ /hpf H 10/24/24 15:12 A&P Assessment and plan (1) Acute cholecystitis due to biliary calculus: Patient presented with nausea vomiting and abdominal pain Found to have acute cholecystitis related to gallbladder stones. LFTs are currently within normal range Admit to [facility] N[facility] for bowel rest As needed Dilaudid for pain management Empiric piperacillin/tazobactam renally dosed General surgery has been consulted from the emergency room, planned laparoscopic cholecystectomy tomorrow. IV fluids normal saline at 75 cc an hour, She has received 3 L fluid bolus in the emergency room as needed Zofran for nausea and vomiting management Denies any other complaints such as chest pain or dyspnea. She is non-smoker. (2) VISHAL (acute kidney injury): Creatinine at 1.2, likely related to dehydration from GI losses from persistent vomiting. IV fluids normal saline at 75 cc an hour Closely monitor urine output and serial creatinine. (3) Dehydration: Plan DVT prophylaxis: Heparin 5000 subcutaneously every 12 hours Full code PDMP PDMP Reviewed: Not Reviewed Attestations Medical Necessity Statement*: Greater than 2 midnight stay is anticipated Coding Level of Care Code Acute Code for Chg Fwd High MDM includes number and complexity of problems actively addressed during encounter, amount and/or complexity of data reviewed/ordered and described risk of complication, morbidity or mortality of management as documented Diagnoses Acute cholecystitis due to biliary calculus K80.00 VISHAL (acute kidney injury) N17.9 Dehydration E86.0
[2024-10-24 17:01] VITALS: BP 131/65; PULSE 94; O2SAT 96
[2024-10-24 17:17] LABS: Lactic Acid level (Lactate) 1.4 mmol/L (0.5-2.2)
[2024-10-24 17:39] VITALS: BP 130/63; PULSE 92; RESP 16; TEMP 36.8; O2SAT 92
[2024-10-24 17:40] VITALS: BMI 32.9
[2024-10-24] MEDS: pantoprazole 40 mg SDV IVP (18:25)
[2024-10-24] MEDS: sodium chloride 0.9% 1,000 ML 75 ML IV (18:25)
[2024-10-24] MEDS: carvedilol 6.25 mg Tablet PO (18:25)
[2024-10-24] MEDS: heparin 5,000 unit/mL INJ 1 mL 5000 UNIT SUBCUT (18:25)
[2024-10-24 19:58] VITALS: BP 103/64; PULSE 92; RESP 16; TEMP 36.7; O2SAT 90
[2024-10-24] MEDS: HYDROmorphone 0.5 MG/0.5 ML INJ IVP (21:56)
[2024-10-24 23:39] VITALS: BP 105/65; PULSE 88; RESP 17; TEMP 37.2; O2SAT 94
[2024-10-25] VITALS (18 sets, daily range): BP systolic 88–137; BP diastolic 60–73; PULSE 68–102; RESP 14–18; TEMP 36.4–36.9; O2SAT 90–97
[2024-10-25] MEDS: heparin 5,000 unit/mL INJ 1 mL 5000 UNIT SUBCUT (05:33)
[2024-10-25] MEDS: piperacillin-tazobactam 3.375 GM in sodium chloride 0.9% (plus) 50 ML IV ×2 (05:33→15:32)
[2024-10-25 06:05] LABS: Basophils # 0.1 10^3/uL (0.0-0.1); Basophils % 0.3 %; Eosinophils % 0.1 %; Hematocrit 34.3 % (36-47); Lymphocytes # 1.9 10^3/uL (0.8-4.8); Lymphocytes % 9.2 %; Mean Corpuscular HGB Conc 31.8 g/dL (30-55); Mean Corpuscular Hemoglobin 31.1 pg (27-33); Mean Corpuscular Volume 97.7 fl (85-98); Mean Platelet Volume 10.1 fL (7.4-10.4); Monocytes # 1.6 10^3/uL (0.2-0.9); Monocytes % 7.6 %; Neutrophils # 16.92 10^3/uL (1.8-7.7); Neutrophils % 81.7 %; Nucleated Red Blood Cells % 0 %; Platelet Count 207 10^3/cmm (157-399); Red Blood Count 3.51 10^6/uL (3.85-5.65); Red Cell Distribution Width 13.6 % (12.1-15.1); White Blood Count 20.71 10^3/uL (3.29-11.43)
[2024-10-25 06:08] LABS: INR 1.15 (0.8-1.2)
[2024-10-25 06:18] LABS: Magnesium 1.7 mg/dL (1.7-2.3)
[2024-10-25 06:19] LABS: Alanine Aminotransferase 14 U/L (0-33); Albumin Level 3.2 g/dL (3.5-5.2); Alkaline Phosphatase 72 U/L (35-105); Aspartate Amino Transferase 16 U/L (0-32); Globulin 1.9 g/dL (1.3-4.6); Total Bilirubin 0.6 mg/dL (0.15-1.2); Total Protein 5.1 g/dL (6.6-8.7)
[2024-10-25] MEDS: sodium chloride 0.9% 1,000 ML 75 ML IV (06:22)
--- NOTE | 2024-10-25 06:45 | W.PM.OPSUD ---
Surgery/Procedure H&P Update DATE OF PROCEDURE: October 25, 2024 DATE H&P PERFORMED: 10/24/24 H&P UPDATE INFORMATION: I have reviewed H&P completed within last 30 days, I have examined patient prior to procedure, No changes to prior documentation, Changes to prior documentation as noted here and Risks and benefits of the procedure reviewed CHANGES TO PREVIOUS DOCUMENTATION: Improved abdominal pain, normal vital signs, improved labs. I went over recent benefits again. I also informed the patient that there is a small chance that we do a diagnostic laparoscopy and there is so much inflammation in the right upper quadrant and we cannot assess the gallbladder, in this case we will continue antibiotic and think about cholecystostomy tube in the case of failure. So far appears to be responding well to the antibiotic. Plan is for OR this afternoon. PLANNED PROCEDURE: Operation Date: 10/25/24 12:05 Proposed Procedures p Laparoscopic Cholecystectomy(Right) - Inderjit Mckeon MD
[2024-10-25] MEDS: ketorolac 30 mg/mL INJ 15 MG IVP (07:49)
[2024-10-25] MEDS: sodium chloride 0.9% 1,000 ML 30 ML IV (10:57)
--- NOTE | 2024-10-25 11:11 | ANES.PREANE2 ---
Pre-Anesthetic Assessment Height/Weight: Height 5 ft 2 in Weight 193 lb 12.8 oz Temp Pulse Resp BP Pulse Ox O2 Del Method 98.5 F 87 17 109/61 92 Room Air 10/25/24 07:42 10/25/24 07:42 10/25/24 07:42 10/25/24 07:42 10/25/24 07:42 10/25/24 07:42 Preop Diagnosis: Acute cholecystitis Operation Date: 10/25/24 12:05 Proposed Procedures p Laparoscopic Cholecystectomy(Right) - Inderjit Mckeon MD Was Beta Forrest taken within 24 hours: N/A Was Clonidine taken within 24 hours: N/A Last intake: Intake Last Liquid Date 10/24/24 Last Liquid Time 12:00 Last Solid Date 10/24/24 Last Solid Time 12:00 Social No alcohol and No tobacco Exam alert, oriented x 3, clear to auscultation bilaterally and regular rate & rhythm Airway Submandibular: within normal limits Cervical ROM: within normal limits Mallampati: Class II Dentition: partials Anesthetic Plan ASA status: 3 Anesthesia: General Other: Patient admitted on Friday with acute cholecystitis Daughter at bedside and states that the patient had prolonged respiratory issues following total hip replacement about 10 years ago. N.p.o. for the last 4 days. Patient states that she was vomiting yesterday but nothing in the last 24 hours History of hypertension on carvedilol and spironolactone VISHAL noted XANDER on CPAP Labs reviewed, leukocytosis noted. Hemoglobin 10.9 EKG showing sinus rhythm with moderate ST depression. Patient denies any chest pain or shortness of breath Plan for GETA Medications/Allergies Home Medications ?Medication ?Instructions ?Recorded ?Confirmed ?Last Taken ?Type gabapentin 100 mg capsule 100 mg PO Q8H PRN nerve pain 06/03/22 10/24/24 10/20/24 History losartan 25 mg tablet 25 mg PO DAILY 06/03/22 10/24/24 10/20/24 History magnesium 200 mg tablet 200 mg PO QPM 12/04/22 10/24/24 12/03/22 History carvedilol 6.25 mg tablet (Coreg) 6.25 mg PO BID 06/06/23 10/24/24 10/21/24 History duloxetine 30 mg capsule,delayed 60 mg PO DAILY 06/06/23 10/24/24 Unknown History release ibuprofen 200 mg tablet (Advil) 400 mg PO Q6H PRN Pain 10/24/24 10/24/24 Unknown History multivit-iron 18 mg-folic acid 400 1 tab PO DAILY 10/24/24 10/24/24 10/20/24 History mcg-calcium 500 mg-minerals tablet (Daily Multiple For Women) spironolactone 25 mg tablet 25 mg PO DAILY 10/24/24 10/24/24 10/21/24 History Allergies Allergy/AdvReac Type Severity Reaction Status Date / Time No Known Allergies Allergy Verified 03/18/24 11:13 Current Medications Generic Name Dose Route Start Last Admin Trade Name Freq PRN Reason Stop Dose Admin Carvedilol 6.25 mg 10/24/24 18:00 10/25/24 07:52 Carvedilol 6.25 Mg Tablet PO Not Given BID ERICK Heparin Sodium (Porcine) 5,000 unit 10/24/24 18:00 10/25/24 05:33 Heparin 5,000 Unit/Ml Inj 1 Ml SUBCUT 5,000 unit Q12H ERICK Administration Hydromorphone HCl 0.5 mg 10/24/24 17:39 10/24/24 21:56 Hydromorphone 0.5 Mg/0.5 Ml Inj IVP 0.5 mg Q4H PRN Administration pain Piperacillin Sod/Tazobactam 50 mls @ 12.5 mls/hr 10/24/24 21:30 10/25/24 10:43 Sod 3.375 gm/ Sodium Chloride IV Infused Q8H ERICK Infusion Sodium Chloride 1,000 mls @ 75 mls/hr 10/24/24 17:39 10/25/24 06:22 Sodium Chloride 0.9% IV 75 mls/hr .[id number] ERICK Administration Sodium Chloride 1,000 mls @ 30 mls/hr 10/25/24 10:45 10/25/24 10:57 Sodium Chloride 0.9% IV 30 mls/hr .Q24H ERICK Administration Ketorolac Tromethamine 15 mg 10/25/24 06:45 10/25/24 07:49 Ketorolac 30 Mg/Ml Inj IVP 10/30/24 06:44 15 mg Q6H ERICK Administration Pantoprazole Sodium 40 mg 10/24/24 18:00 10/24/24 18:25 Pantoprazole 40 Mg Sdv IVP 40 mg Q24H ERICK Administration PFSH Anesthesia Medical History Sleep apnea Hypertension Family History Brother Hypertension Stroke Sister Hypertension Mother Hypertension Stroke Father Hypertension Social History Smoking and tobacco/nicotine status: never used tobacco/nicotine Second hand smoke exposure: No Alcohol intake: current Alcohol intake frequency: holidays/special occasions only Alcohol type: wine Substance/Drug Use: never Data Anesthesia 10/25/24 05:20 10/25/24 05:20 Short CBC 10/24/24 10/25/24 Range/Units 13:52 05:20 WBC 27.97 H 20.71 H (3.29-11.43) 10^3/uL Hgb 15.00 10.90 L (11.27-16.99) g/dL Hct 44.9 34.3 L (36-47) % MCV 93.5 97.7 (85-98) fl Plt Count 299 207 D (157-399) 10^3/cmm Neut % (Auto) 53.2 81.7 % Neut # (Auto) 14.88 H 16.92 H (1.8-7.7) 10^3/uL BMP 10/24/24 10/25/24 13:52 05:20 Sodium 134 L 142 Potassium 3.9 3.9 Chloride 98 111 H Carbon Dioxide 20 L 20 L BUN 36 H 34 H Creatinine 1.2 H 0.9 Glucose 148 H 103 Calcium 9.2 7.5 L Liver Function 10/24/24 10/25/24 Range/Units 13:52 05:20 Total Bilirubin 0.9 0.6 (0.15-1.2) mg/dL Direct Bilirubin 0.20 (0.00-0.30) mg/dL AST 24 16 (0-32) U/L ALT 21 14 (0-33) U/L Alkaline Phosphatase 64 72 (35-105) U/L Albumin 3.9 3.2 L (3.5-5.2) g/dL Urine 10/24/24 Range/Units 15:12 Urine Color [place] A (Yellow) Urine Appearance Cloudy A (CLEAR) Urine pH 5 (5-7) Ur Specific [place] 1.025 (1.005-1.030) Urine Protein 3+ A (Negative) Urine Glucose (UA) Norm (Normal) Urine Ketones Negative (Negative) Urine Nitrate Negative (Negative) Urine Bilirubin 1+ H (Negative) Ur Leukocyte Esterase Trace A (Negative) Urine RBC >100 H (0-2) /hpf Urine WBC 11-20 H (0-5) /hpf Coags 10/25/24 05:20 PT 15.50 H INR 1.15 Microbiology 10/24/24 15:12 Urine Culture - Preliminary Urine,Clean Catch 10/24/24 14:32 Blood Culture - Preliminary Blood SPECIMEN COLLECTED 10/24/24 14:30 Blood Culture - Preliminary Blood SPECIMEN COLLECTED Cardiac Studies: Sestamibi Stress Test (Cardiology) 05/22/23
[2024-10-25] MEDS: BUPivacaine 0.25% INJ 10 mL INJECTION (12:05)
[2024-10-25] MEDS: lidocaine-epi 1% 20 mL INJ INJECTION (12:06)
--- NOTE | 2024-10-25 13:01 | P.PN_ITS ---
Subjective 2 Subjective: unable to see pt Vitals/I&O/Wt Last Vital Signs Temp 98.5 F 10/25/24 07:42 Pulse 87 10/25/24 07:42 Resp 17 10/25/24 07:42 BP 109/61 10/25/24 07:42 Pulse Ox 92 10/25/24 07:42 O2 Del Method Room Air 10/25/24 07:42 10/24/24 10/25/24 10/25/24 22:59 06:59 14:59 Intake Total 2800 / 2800 946.25 / 3746.25 50 / 50 Balance 2800 / 2800 946.25 / 3746.25 50 / 50 Weight last 48 hrs Weight 87.906 kg Weight 81.647 kg Weight 81.647 kg Physical Exam 2 Narrative: pt has not returned from surgery yet Data 10/26/24 04:21 10/26/24 04:21 Micro: Microbiology 10/24/24 15:12 Urine Culture - Preliminary Urine,Clean Catch 10/24/24 14:32 Blood Culture - Preliminary Blood SPECIMEN COLLECTED 10/24/24 14:30 Blood Culture - Preliminary Blood SPECIMEN COLLECTED A&P Assessment and plan (1) Acute cholecystitis due to biliary calculus: Patient presented with nausea vomiting and abdominal pain Found to have acute cholecystitis related to gallbladder stones. LFTs are currently within normal range Admit to Medr N.p.o. for bowel rest As needed Dilaudid for pain management Empiric piperacillin/tazobactam renally dosed General surgery has been consulted from the emergency room, planned laparoscopic cholecystectomy tomorrow. IV fluids normal saline at 75 cc an hour, She has received 3 L fluid bolus in the emergency room as needed Zofran for nausea and vomiting management Denies any other complaints such as chest pain or dyspnea. She is non-smoker. (2) VISHAL (acute kidney injury): Creatinine at 1.2, likely related to dehydration from GI losses from persistent vomiting. IV fluids normal saline at 75 cc an hour Closely monitor urine output and serial creatinine. (3) Dehydration: Plan DVT prophylaxis: Heparin 5000 subcutaneously every 12 hours Full code 10/25/2024 undergoing cholecystectomy today. pt has not returned from surgery yet. visited PACU twice to see her but was unable to physically see pt. continue antibiotics/zosyn continue ns 75 cc/hour vishal resolved surgery following urine culture pending: continue zosyn await urine culture PDMP PDMP Reviewed: Not Reviewed Attestations 2 Medical Necessity Statement*: pt post-op awaiting urine culture continue IV antibiotics Diagnoses Acute cholecystitis due to biliary calculus K80.00 VISHAL (acute kidney injury) N17.9 Dehydration E86.0
--- NOTE | 2024-10-25 14:14 | P.OP_ITS ---
Operative Report Date of procedure: October 25, 2024 Pre-op diagnosis: Acute cholecystitis Post-op diagnosis: Acute gangrenous cholecystitis Post-op findings: There was a severe inflammatory phlegmon in the right upper quadrant, the colon and pericolonic fat was adhered to the gallbladder, there was acute inflammatory changes in the gallbladder consisting of several patches of gangrenous compromise, there were thick inflammatory rinds between the pericholecystic tissue on the gallbladder, there was severe chronic inflammation of the hepatocystic triangle. Procedure done: Laparoscopic cholecystectomy ([id number]) Specimens removed/disposition: Gallbladder Surgeon: Inderjit Mckeon MD, Arron Francis MD. Customer Development Representative: [facility] Estimated blood loss: 20 Complications: none apparent Brief History: 79-year-old female who presents to hospital with acute cholecystitis, after initial resuscitation with IV fluids and antibiotics we decided to proceed to the OR for a laparoscopic possible open appendectomy. All risk benefits were discussed and the commended my preop note Procedure: Patient was brought into the OR, she was placed in the supine position. General anesthesia was given. The abdomen was prepped and draped in the usual sterile fashion. Timeout was conducted. The abdomen was accessed in the left upper quadrant with a 5 mm Optiview trocar, initial pneumoperitoneum was achieved and no evidence of visceral injury during entry was noted. 5 mm trocar was placed in the supra umbilical location, additional 5 mm trocars were placed in the right upper quadrant right flank and epigastrium. This was done under direct visualization. There was a severe inflamatory phlegmon on the RUQ, the pericolonic tissue was adhered tot he body of the gallblader, the fundus of the gallblader was visible but very distended, a patch of gangrene was visible at the level of the fundus. I decided to decompress the gallblader with a decompression needle before proceeding. 50cc of dark bile was obtained. the gallblader was then able to be grasped and elevated. with carefull blunt dissection the thick inflamatory rinds were taken down. The dissection was very complex and anatomical planes were abscent, therefore I decided to call Dr. Morales for assistance due to his additional level of expertise. Dr. Morales scrubbed in and we were logan to take down the inflamed tissue down to the level of the cystic duct. the cystic artery was identified and disected. the artery was obscuring the plane of dissection and therefore was double clipped proximal and single clipped distally and transected. We were then able to encircle the cystic duct and we elevated the lower third of the gallblader from the liver. the cystic duct was then double clipped proximal and single clipped distally and transected. the gallblader was excised from the liver bed with electrocautery and extracted from the abdomen in an endocatch bag after upsising the umbilical trocar to 12mm. the liver bed was irrigated and suctioned and no additional bleeding or bile leak was noted. clips were in good position. the umbilical trocar site was closed with a tricia tracey suture passer under direct visualization. the epigastrium, RUQ and right trocars were removed under direct visualization and the RUQ trocar site was closed with #0vicryl under direct visualization. the left upper quadrant trocar was used to evacuate the pneumoperitoneum and then removed. wounds were irrigated and hemostasis achieved. the wounds were closed in layers using #3-0 vicryl for the subcutaneous tissue and #4-0 monocryl for skin. dermabond was applied. at the end of the procedure all counts were correct, the patient tolerated well and was transfered to PACU in stable condition. Due to the technical complexity of this procedure as well as sever inflamatory changes a second surgeon was required to complete the procedure.
[2024-10-25] MEDS: diphenhydrAMINE 50 mg/mL SDV 1mL 12.5 MG IVP (14:54)
[2024-10-25] MEDS: acetaminophen 1,000 MG/100 ML PIGGYBACK 400 MG IV (15:34)
[2024-10-25] MEDS: pantoprazole 40 mg SDV IVP (17:21)
[2024-10-25] MEDS: carvedilol 6.25 mg Tablet PO (17:21)
[2024-10-25] MEDS: ondansetron 2 mg/ML SDV 2 mL 4 MG IVP (18:55)
[2024-10-25] MEDS: HYDROmorphone 0.5 MG/0.5 ML INJ IVP (18:55)
[2024-10-26] VITALS (9 sets, daily range): BP systolic 106–149; BP diastolic 63–79; PULSE 67–73; RESP 16–18; TEMP 36.1–37.1; O2SAT 93–97
[2024-10-26] MEDS: acetaminophen 1,000 MG/100 ML PIGGYBACK 400 MG IV ×2 (00:03→12:25)
[2024-10-26] MEDS: piperacillin-tazobactam 3.375 GM in sodium chloride 0.9% (plus) 50 ML IV ×4 (00:04→22:23)
[2024-10-26] MEDS: morphine 4 mg/mL SDV 1 mL 2 MG IVP ×2 (00:35→07:37)
[2024-10-26] MEDS: sodium chloride 0.9% 1,000 ML 75 ML IV (01:39)
[2024-10-26 04:53] LABS: Basophils % 0.1 %; Eosinophils % 0.1 %; Hematocrit 36.2 % (36-47); Lymphocytes % 7.2 %; Mean Corpuscular HGB Conc 29.8 g/dL (30-55); Mean Corpuscular Hemoglobin 30.6 pg (27-33); Mean Corpuscular Volume 102.5 fl (85-98); Mean Platelet Volume 10.4 fL (7.4-10.4); Monocytes # 0.9 10^3/uL (0.2-0.9); Monocytes % 6.2 %; Neutrophils # 12.21 10^3/uL (1.8-7.7); Neutrophils % 85.4 %; Nucleated Red Blood Cells % 0 %; Platelet Count 186 10^3/cmm (157-399); Red Blood Count 3.53 10^6/uL (3.85-5.65); Red Cell Distribution Width 13.6 % (12.1-15.1); White Blood Count 14.29 10^3/uL (3.29-11.43)
[2024-10-26 05:08] LABS: Anion Gap 14.9 (5-19); Blood Urea Nitrogen 34 mg/dL (8-23); Calcium 7.5 mg/dL (8.5-10.5); Carbon Dioxide 20 mmol/L (22-29); Chloride 111 mmol/L (98-107); Creatinine Clr Calc Pharmacy 50.4769; Glucose 103 mg/dL (65-115); Osmolality Calculated 302 mOsm/kg (285-295); Potassium 3.9 mmol/L (3.5-5.1); Sodium 142 mmol/L (136-145)
[2024-10-26 05:26] LABS: Alanine Aminotransferase 27 U/L (0-33); Albumin Level 2.8 g/dL (3.5-5.2); Alkaline Phosphatase 50 U/L (35-105); Anion Gap 11.9 (5-19); Aspartate Amino Transferase 31 U/L (0-32); Blood Urea Nitrogen 30 mg/dL (8-23); Calcium 7.4 mg/dL (8.5-10.5); Carbon Dioxide 21 mmol/L (22-29); Chloride 114 mmol/L (98-107); Creatinine Clr Calc Pharmacy 56.7865; Globulin 3.4 g/dL (1.3-4.6); Glucose 127 mg/dL (65-115); Magnesium 1.9 mg/dL (1.7-2.3); Osmolality Calculated 304 mOsm/kg (285-295); Potassium 3.9 mmol/L (3.5-5.1); Sodium 143 mmol/L (136-145); Total Bilirubin 0.3 mg/dL (0.15-1.2); Total Protein 6.2 g/dL (6.6-8.7)
[2024-10-26 05:27] LABS: Alanine Aminotransferase 27 U/L (0-33); Alkaline Phosphatase 55 U/L (35-105); Aspartate Amino Transferase 32 U/L (0-32); Blood Urea Nitrogen 31 mg/dL (8-23); Calcium 7.3 mg/dL (8.5-10.5); Carbon Dioxide 20 mmol/L (22-29); Chloride 115 mmol/L (98-107); Creatinine Clr Calc Pharmacy 56.7865; Globulin 2.3 g/dL (1.3-4.6); Glucose 128 mg/dL (65-115); Osmolality Calculated 308 mOsm/kg (285-295); Sodium 145 mmol/L (136-145); Total Bilirubin 0.3 mg/dL (0.15-1.2); Total Protein 5.3 g/dL (6.6-8.7)
[2024-10-26] MEDS: carvedilol 6.25 mg Tablet PO ×2 (07:25→17:47)
--- NOTE | 2024-10-26 08:52 | P.PN_ITS ---
Subjective 2 Subjective: Operative day 1 status post laparoscopic cholecystectomy for gangrenous acute cholecystitis. Patient doing very well overnight, vital signs stable, improved abdominal pain. No nausea or vomit. Vitals/I&O/Wt Last Vital Signs Temp 98.8 F 10/26/24 07:53 Pulse 73 10/26/24 07:53 Resp 17 10/26/24 07:53 BP 123/63 10/26/24 07:53 Pulse Ox 96 10/26/24 07:53 O2 Del Method Nasal Cannula 10/26/24 07:53 O2 Flow Rate 2 10/25/24 20:00 10/25/24 10/26/24 10/26/24 22:59 06:59 14:59 Intake Total 1490 / 3040 630 / 3670 Balance 1490 / 3020 630 / 3650 Weight last 48 hrs Weight 192 lb 8 oz Weight 193 lb 12.8 oz Weight 180 lb Weight 180 lb Physical Exam 2 GI: OTHER: Abdominal exam is benign abdomen is soft, appropriately tender to palpation, surgical incisions covered with dressing. Data 10/26/24 04:21 10/26/24 04:21 Micro: Microbiology 10/24/24 15:12 Urine Culture - Final Urine,Clean Catch 10/24/24 14:32 Blood Culture - Preliminary Blood NEGATIVE TO DATE 10/24/24 14:30 Blood Culture - Preliminary Blood NEGATIVE TO DATE A&P Assessment and plan (1) Acute gangrenous cholecystitis: Plan Patient is showing very good progression overnight, white count has improved, LFTs appear to be normal, kidney function is normal. Will advance her to a GI soft diet today. Due to significant inflammation she will probably benefit from 1 additional day in the hospital before being transition to the outpatient setting. We will encourage ambulation. Management per medical team is appreciated. PDMP PDMP Reviewed: Not Reviewed Attestations 2 Medical Necessity Statement*: Per medical team Coding Level of Care Code Acute Code for [facility] Diagnoses Acute gangrenous cholecystitis K81.0
[2024-10-26] MEDS: ketorolac 30 mg/mL INJ 15 MG IVP ×3 (10:51→20:34)
[2024-10-26] MEDS: polyethylene glycol 3350 Pkt 17 gm PO (10:51)
--- NOTE | 2024-10-26 13:48 | P.PN_ITS ---
Subjective 2 Subjective: seen today pt resting comfortably in bed, grand daughter at bedside pt passing gas abdomen sore and hurts when she coughs states does not want to take dilaudid will continue with morphine Vitals/I&O/Wt Last Vital Signs Temp 98.1 F 10/26/24 11:26 Pulse 72 10/26/24 11:26 Resp 17 10/26/24 11:26 BP 127/68 10/26/24 11:26 Pulse Ox 95 10/26/24 11:26 O2 Del Method Room Air 10/26/24 11:26 O2 Flow Rate 2 10/25/24 20:00 10/25/24 10/26/24 10/26/24 22:59 06:59 14:59 Intake Total 1490 / 3040 630 / 3670 440 / 440 Balance 1490 / 3020 630 / 3650 440 / 440 Weight last 48 hrs Weight 87.317 kg Weight 87.906 kg Weight 81.647 kg Data 10/26/24 04:21 10/26/24 04:21 Micro: Microbiology 10/24/24 15:12 Urine Culture - Final Urine,Clean Catch 10/24/24 14:32 Blood Culture - Preliminary Blood NEGATIVE TO DATE 10/24/24 14:30 Blood Culture - Preliminary Blood NEGATIVE TO DATE A&P Assessment and plan (1) Acute cholecystitis due to biliary calculus: Patient presented with nausea vomiting and abdominal pain Found to have acute cholecystitis related to gallbladder stones. LFTs are currently within normal range Admit to Medr N.p.o. for bowel rest As needed Dilaudid for pain management Empiric piperacillin/tazobactam renally dosed General surgery has been consulted from the emergency room, planned laparoscopic cholecystectomy tomorrow. IV fluids normal saline at 75 cc an hour, She has received 3 L fluid bolus in the emergency room as needed Zofran for nausea and vomiting management Denies any other complaints such as chest pain or dyspnea. She is non-smoker. (2) VISHAL (acute kidney injury): Creatinine at 1.2, likely related to dehydration from GI losses from persistent vomiting. IV fluids normal saline at 75 cc an hour Closely monitor urine output and serial creatinine. (3) Dehydration: Plan DVT prophylaxis: Heparin 5000 subcutaneously every 12 hours Full code 10/25/2024 undergoing cholecystectomy today. pt has not returned from surgery yet. visited PACU twice to see her but was unable to physically see pt. continue antibiotics/zosyn continue ns 75 cc/hour vishal resolved surgery following urine culture pending: continue zosyn await urine culture 10/26/2024 awaiting urine culture surgical specimen sent to pathology stop dilaudid continue morphine continue gi soft diet continue IV zosyn at this time plan to dc on oral antibiotics continue GI soft diet pain control today PDMP PDMP Reviewed: Not Reviewed Attestations 2 Medical Necessity Statement*: IV antibiotics, post-op care Diagnoses Acute cholecystitis due to biliary calculus K80.00 VISHAL (acute kidney injury) N17.9 Dehydration E86.0
[2024-10-26] MEDS: pantoprazole 40 mg SDV IVP (17:47)
[2024-10-27 00:33] VITALS: BP 151/77; PULSE 71; RESP 17; TEMP 36.4; O2SAT 95
[2024-10-27] MEDS: ketorolac 30 mg/mL INJ 15 MG IVP ×2 (02:28→09:03)
[2024-10-27 04:00] VITALS: BP 143/91; PULSE 71; RESP 17; TEMP 36.6; O2SAT 94
[2024-10-27 05:31] LABS: Basophils % 0.1 %; Eosinophils % 0.5 %; Hematocrit 31.2 % (36-47); Lymphocytes # 1.3 10^3/uL (0.8-4.8); Lymphocytes % 15.8 %; Mean Corpuscular HGB Conc 31.7 g/dL (30-55); Mean Corpuscular Hemoglobin 30.8 pg (27-33); Mean Corpuscular Volume 97.2 fl (85-98); Mean Platelet Volume 10.3 fL (7.4-10.4); Monocytes # 0.7 10^3/uL (0.2-0.9); Monocytes % 8.1 %; Neutrophils # 6.36 10^3/uL (1.8-7.7); Neutrophils % 74.8 %; Nucleated Red Blood Cells % 0 %; Platelet Count 216 10^3/cmm (157-399); Red Blood Count 3.21 10^6/uL (3.85-5.65); Red Cell Distribution Width 13.4 % (12.1-15.1)
[2024-10-27 06:03] LABS: Alanine Aminotransferase 44 U/L (0-33); Albumin Level 2.8 g/dL (3.5-5.2); Alkaline Phosphatase 51 U/L (35-105); Anion Gap 12.7 (5-19); Aspartate Amino Transferase 41 U/L (0-32); Blood Urea Nitrogen 28 mg/dL (8-23); Calcium 7.7 mg/dL (8.5-10.5); Carbon Dioxide 20 mmol/L (22-29); Chloride 117 mmol/L (98-107); Creatinine Clr Calc Pharmacy 56.5814; Glucose 100 mg/dL (65-115); Magnesium 2.1 mg/dL (1.7-2.3); Osmolality Calculated 308 mOsm/kg (285-295); Potassium 3.7 mmol/L (3.5-5.1); Sodium 146 mmol/L (136-145); Total Bilirubin 0.3 mg/dL (0.15-1.2); Total Protein 5.8 g/dL (6.6-8.7)
[2024-10-27] MEDS: piperacillin-tazobactam 3.375 GM in sodium chloride 0.9% (plus) 50 ML IV (06:25)
--- NOTE | 2024-10-27 07:33 | P.PN_ITS ---
Subjective 2 Subjective: Postoperative day 2 status post laparoscopic ostectomy for acute cholecystitis. Patient is doing very well, no significant issues. Denies abdominal pain. Tolerating diet. Vitals/I&O/Wt Last Vital Signs Temp 97.8 F 10/27/24 04:00 Pulse 71 10/27/24 04:00 Resp 17 10/27/24 04:00 BP 143/91 10/27/24 04:00 Pulse Ox 94 10/27/24 04:00 O2 Del Method Room Air 10/27/24 04:00 O2 Flow Rate 2 10/25/24 20:00 10/26/24 10/27/24 10/27/24 22:59 06:59 14:59 Intake Total 1050 / 1490 50 / 1540 Output Total 0 / 0 Balance 1050 / 1490 50 / 1540 Weight last 48 hrs Weight 192 lb 8 oz Physical Exam 2 GI: OTHER: Abdomen soft appropriately tender to palpation, surgical incisions covered with dressing. Data 10/27/24 02:24 10/27/24 02:24 Micro: Microbiology 10/24/24 15:12 Urine Culture - Final Urine,Clean Catch A&P Assessment and plan (1) Acute cholecystitis due to biliary calculus: Plan Patient showing excellent progression, plan will be to proceed to the outpatient setting today. Will continue 5 more days of p.o. antibiotics, pain control and stool softener. Patient will follow-up with me in 2 weeks. PDMP PDMP Reviewed: Not Reviewed Attestations 2 Medical Necessity Statement*: Per medical Coding Level of Care Code 34439 Diagnoses Acute cholecystitis due to biliary calculus K80.00
[2024-10-27 08:00] VITALS: BP 154/86; PULSE 71; RESP 16; TEMP 36.5; O2SAT 95
[2024-10-27] MEDS: polyethylene glycol 3350 Pkt 17 gm PO (09:03)
[2024-10-27] MEDS: carvedilol 6.25 mg Tablet PO (09:03)
--- NOTE | 2024-10-27 09:47 | PC.NURSE ---
Bowel sounds active all 4 quads. Pt passing flatus, no BM yet.
--- NOTE | 2024-10-27 10:09 | PM.DCS ---
Discharge Providers Date of Admission: 10/24/24 16:09 Date of Discharge: October 27, 2024 Attending Provider at Admission: Gwen Arellano MD Attending Provider at Discharge: Olga Lidia Rojas MD Primary Care Provider: Gillian Coles MD Diagnoses at Discharge Discharge Diagnosis (1) Acute cholecystitis due to biliary calculus: Status: Acute Reason for Visit Reason for Visit: abd pain, n/v/f Hospital Course Hospital Course Patient presented to the hospital with nausea vomiting abdominal pain found to have acute cholecystitis underwent cholecystectomy. She did have gangrenous acute cholecystitis. IV antibiotics were administered during hospital stay and she was monitored 24 hours postop. She is doing well walking passing gas. She can tolerate GI soft diet. She was discharged home in stable condition with oral antibiotics as outpatient and to follow-up with general surgery. Cultures negative to date. Physical Exam Narrative: General: Alert oriented x3, patient seen in bed appearing comfortable at this time. HEENT: Normocephalic, atraumatic, EOMI, breathing room air. Cardio: Regular rate rhythm, normal S1-S2, Respiratory: Good bilateral air entry, no wheezes no rhonchi appreciated GI: Mainly nontender, soft, no rebound tenderness, mild tenderness which is expected postop. Behavior: Appropriate and cooperative Extremities: No edema. Discharge Data Studies Completed and Pending Completed Studies During Hospitalization Category Date Time Status CT abdomen pelvis w con* [id number] Stat Cat Scan 10/24/24 13:45 Completed US gall bladder [id number] Stat Ultrasound 10/24/24 14:03 Completed Pending at discharge Category Date Time Status Blood Culture Stat Lab 10/24/24 14:32 Results Pathology: Surgical [PTH] Routine Pth 10/25/24 14:07 Received Radiology Impressions Abdomen/Pelvis CT 10/24/24 13:45 IMPRESSION: Likely acute cholecystitis with a thickened gallbladder wall and mild pericholecystic stranding and trace fluid. The gallstones visible on ultrasound are not seen on this study. Gallbladder Ultrasound 10/24/24 14:03 IMPRESSION: 1. No acute findings. 2. Cholelithiasis with a thickened gallbladder wall and a distended appearing gallbladder. Laboratory Results WBC 8.50 10^3/uL (3.29-11.43) 10/27/24 02:24 RBC 3.21 10^6/uL (3.85-5.65) L 10/27/24 02:24 Hgb 9.90 g/dL (11.27-16.99) L 10/27/24 02:24 Hct 31.2 % (36-47) L 10/27/24 02:24 MCV 97.2 fl (85-98) D 10/27/24 02:24 MCH 30.8 pg (27-33) 10/27/24 02:24 MCHC 31.7 g/dL (30-55) D 10/27/24 02:24 RDW 13.4 % (12.1-15.1) 10/27/24 02:24 Plt Count 216 10^3/cmm (157-399) 10/27/24 02:24 MPV 10.3 fL (7.4-10.4) 10/27/24 02:24 Neut % (Auto) 74.8 % 10/27/24 02:24 Lymph % (Auto) 15.8 % 10/27/24 02:24 [place] % (Auto) 8.1 % 10/27/24 02:24 Eos % (Auto) 0.5 % 10/27/24 02:24 Baso % (Auto) 0.1 % 10/27/24 02:24 Neut # (Auto) 6.36 10^3/uL (1.8-7.7) 10/27/24 02:24 Lymph # (Auto) 1.3 10^3/uL (0.8-4.8) 10/27/24 02:24 [place] # (Auto) 0.7 10^3/uL (0.2-0.9) 10/27/24 02:24 Eos # (Auto) 0.0 10^3/uL (0.0-0.8) 10/27/24 02:24 Baso # (Auto) 0.0 10^3/uL (0.0-0.1) 10/27/24 02:24 Nucleated RBC % (auto) 0 % 10/27/24 02:24 Nucleated RBCs # 0.0 /100WBC 10/27/24 02:24 PT 15.50 SECONDS (12.1-14.9) H 10/25/24 05:20 INR 1.15 (0.8-1.2) 10/25/24 05:20 Sodium 146 mmol/L (136-145) H 10/27/24 02:24 Potassium 3.7 mmol/L (3.5-5.1) 10/27/24 02:24 Chloride 117 mmol/L (98-107) H 10/27/24 02:24 Carbon Dioxide 20 mmol/L (22-29) L 10/27/24 02:24 Anion Gap 12.7 (5-19) 10/27/24 02:24 BUN 28 mg/dL (8-23) H 10/27/24 02:24 Creatinine 0.8 mg/dL (0.5-0.9) 10/27/24 02:24 GFR Calculation Not Reportable 10/27/24 02:24 Glucose 100 mg/dL (65-115) 10/27/24 02:24 Calculated Osmolality 308 mOsm/kg (285-295) H 10/27/24 02:24 Lactic Acid 2.8 mmol/L (0.5-2.2) H 10/24/24 13:52 Lactic Acid (Sepsis) 1.4 mmol/L (0.5-2.2) 10/24/24 16:54 Calcium 7.7 mg/dL (8.5-10.5) L 10/27/24 02:24 Magnesium 2.1 mg/dL (1.7-2.3) 10/27/24 02:24 Total Bilirubin 0.3 mg/dL (0.15-1.2) 10/27/24 02:24 Direct Bilirubin 0.20 mg/dL (0.00-0.30) 10/26/24 04:21 AST 41 U/L (0-32) H 10/27/24 02:24 ALT 44 U/L (0-33) H 10/27/24 02:24 Alkaline Phosphatase 51 U/L (35-105) 10/27/24 02:24 Total Protein 5.8 g/dL (6.6-8.7) L 10/27/24 02:24 Albumin 2.8 g/dL (3.5-5.2) L 10/27/24 02:24 Globulin 3.0 g/dL (1.3-4.6) 10/27/24 02:24 Lipase 22 U/L (13-60) 10/24/24 13:52 Urine Color [place] (Yellow) A 10/24/24 15:12 Urine Appearance Cloudy (CLEAR) A 10/24/24 15:12 Urine pH 5 (5-7) 10/24/24 15:12 Ur Specific [place] 1.025 (1.005-1.030) 10/24/24 15:12 Urine Protein 3+ (Negative) A 10/24/24 15:12 Urine Glucose (UA) Norm (Normal) 10/24/24 15:12 Urine Ketones Negative (Negative) 10/24/24 15:12 Urine Blood 3+ (Negative) A 10/24/24 15:12 Urine Nitrate Negative (Negative) 10/24/24 15:12 Urine Bilirubin 1+ (Negative) H 10/24/24 15:12 Urine Urobilinogen Neg mg/dL (Negative) 10/24/24 15:12 Ur Leukocyte Esterase Trace (Negative) A 10/24/24 15:12 Urine RBC >100 /hpf (0-2) H 10/24/24 15:12 Urine WBC 11-20 /hpf (0-5) H 10/24/24 15:12 Ur Squamous Epith Cells 6-10 /hpf (0-5) 10/24/24 15:12 Amorphous Sediment Not Reportable 10/24/24 15:12 Urine Bacteria 1+ /hpf (NONE) H 10/24/24 15:12 Hyaline Casts 26.04 /lpf 10/24/24 15:12 Urine Mucus 1+ /hpf 10/24/24 15:12 Urine Yeast 2+ /hpf H 10/24/24 15:12 Vitals Last Vital Signs Temp 97.7 F 10/27/24 08:00 Pulse 71 10/27/24 08:00 Resp 16 10/27/24 08:00 BP 154/86 10/27/24 08:00 Pulse Ox 95 10/27/24 08:00 O2 Del Method Room Air 10/27/24 08:00 O2 Flow Rate 2 10/25/24 20:00 Discharge Plan Discharge Patient Disposition: Home Condition: Stable Prescriptions: New amoxicillin-pot clavulanate 875-125 mg tablet 1 tab PO BID 5 Days Qty: 10 0RF Continued carvedilol [Coreg] 6.25 mg tablet 6.25 mg PO BID Rx Instructions: must administer with a meal/food losartan 25 mg tablet 25 mg PO DAILY gabapentin 100 mg capsule 100 mg PO Q8H PRN (Reason: nerve pain) magnesium 200 mg Tablet 200 mg PO QPM duloxetine 30 mg capsule,delayed release(DR/EC) 60 mg PO DAILY Daily Multiple For Women 18 mg iron-400 mcg-500 mg Ca Tablet 1 tab PO DAILY ibuprofen [Advil] 200 mg Tablet 400 mg PO Q6H PRN (Reason: Pain) Held spironolactone 25 mg tablet 25 mg PO DAILY Hold Instructions: see pcp Discharge Orders: Discharge Order (Routine); Ordered 10/27/24 Ordered By: Olga Lidia Rojas Referrals: Gillian Coles MD [Primary Care Provider] - 11/08/24 1:15 pm Inderjit Mckeon MD [Physician] - 11/10/24 10:20 am (2 weeks ) Discharge Diet: GI Soft Discharge Activity: Resume usual activity Patient Instructions: Amoxicillin/Clavulanate Potassium (By mouth), Acute Wound Care (DC), Laparoscopic Cholecystectomy (GEN), Opioid Safety, Post Anesthesia Care Activity Restrictions/Additional Instructions: General surgery instructions: Walk is much as possible decibels. After your recovery, no heavy lifting for the next 6 weeks. Return to the hospital Severe abdominal pain that is worse over time or yellowing of your skin and eyes. Discharge Attestations Time Spent in Discharge Care*: greater than 30 min Quality Metrics Clinical Quality Measures [ No reported AMI, CVA or VTE this stay] Coding Level of Care Code Acute Code for Chg Fwd Diagnoses Acute cholecystitis due to biliary calculus K80.00
[2024-10-27 11:48] VITALS: BP 187/80; PULSE 67; RESP 18; TEMP 36.4; O2SAT 97
[2024-10-27 12:09] VITALS: BP 187/80; PULSE 67; RESP 18; TEMP 36.4; O2SAT 97
--- NOTE | 2024-10-27 12:10 | PC.NURSE ---
Discharge instructions provided to pt at this time. NO questions or concerns voiced at this time. Pt awaiting ride.
== END 2024-10-27 12:25 | disposition home or self-care (01) | DRG 418 ==
LOC: ER 17:03 → MEDSURG 17:16
PROVIDERS: Surgery; Admitting Provider Student in an Organized Health Care Education/Training Program; Emergency Provider Emergency Medicine; PCP Internal Medicine; Visit Provider Internal Medicine
PROC: 0FT44ZZ Resection of Gallbladder, Percutaneous Endoscopic Approach (ICD-10-PCS; CPT 47562; principal; 2024-10-25 11:55)
DX: K80.12 Calculus of gallbladder with acute and chronic cholecystitis without obstruction (principal); N17.9 Acute kidney failure, unspecified; K82.A1 Gangrene of gallbladder in cholecystitis; I10 Essential (primary) hypertension; E86.0 Dehydration; G47.30 Sleep apnea, unspecified
CPT/HCPCS: 36415; 74177; 76705; 80048; 80053; 80076; 81001; 83605; 83690; 83735; 85025; 85610; 87040; 87086; 88304; 93005; 96365; 96367; 96372; 96375; 99285; A4216; J0131; J0360; J1100; J1171; J1200; J1644; J1885; J2270; J2405; J2470; J2543; J2704; J2710; J3010; J3370; J3490; J7030; J7040; J7050; J9999

== ENCOUNTER → 2024-11-10 10:01 | Outpatient (BNVA) | payer MEDICARE, SELFPAY | PROVIDERS: PCP Internal Medicine; Visit Provider Surgery | DX: Z90.49 Acquired absence of other specified parts of digestive tract (principal); Z98.890 Other specified postprocedural states | CPT/HCPCS: 99213 ==